=== PATIENT | female | born 1985 | race Caucasian/White ===

== ENCOUNTER 2017-01-11 04:14 | Emergency (ER) | payer OTHER ==
[2017-01-11 04:29] VITALS: TEMP 97.8; BMI 26.6
--- NOTE | 2017-01-11 04:55 | PDOC ---
History of Present Illness - History of Present Illness Initial Comments: 01/11/17 04:54 CHIEF COMPLAINT: throat pain and fever HISTORY OF PRESENT ILLNESS: 31 yo F with no significant PMH presents to ED with throat pain and fever x 3 days. Patient states she is having difficulty swallowing, speaking, and difficulty moving her neck due to pain and "a bump" to the R side of her neck. No recent travel or sick contacts. PAST MEDICAL HISTORY: Denies past medical history FAMILY HISTORY: Denies SOCIAL HISTORY: Denies tobacco, alcohol, illicit drug use. SURGICAL HISTORY: Denies ALLERGIES: No known drug allergies REVIEW OF SYSTEMS General/Constitutional: Fever x 3 days. Denies fever or chills. Denies weakness , weight change. HEENT: Throat pain. Denies change in vision. Denies ear pain or discharge. Denies sore throat. Cardiovascular: Denies chest pain or shortness of breath. Respiratory: Denies cough, wheezing, or hemoptysis. Gastrointestinal: Denies nausea, vomiting, diarrhea or constipation. Denies rectal bleeding. Musculoskeletal: Right sided neck pain. PHYSICAL EXAM General Appearance: Well-appearing, appropriately dressed. No apparent distress , no intoxication. HEENT: Tonsillar swelling with exudate bilaterally, more prominent to L side. Muffled, "hot potato voice." EOMI, PERRLA, normal ENT inspection, normal voice , TMs normal, pharynx normal. No conjunctival pallor. No photophobia, scleral icterus. Neck: R posterior. cervical lymphadenopathy. Supple. Trachea midline. No tenderness, rigidity, carotid bruit, stridor, lymphadenopathy, or thyromegaly. Respiratory/Chest: Lungs CTAB. No shortness of breath, chest tenderness, respiratory distress, accessory muscle use. No crackles, rales, rhonchi, stridor , wheezing, dullness Cardiovascular: RRR. S1, S2. Gastrointestinal/Abdominal: Normal bowel sounds. Abdomen soft, non-distended. No tenderness or rebound tenderness. No organomegaly, pulsatile mass, guarding , hernia, hepatomegaly, splenomegaly. Lymphatic: No adenopathy, tenderness. Musculoskeletal/Extremities: Normal inspection. FROM of all extremities, normal capillary refill. Pelvis Stable. No CVA tenderness. No tenderness to extremities, pedal edema, swelling, erythema or deformity. Integumentary: Appropriate color, dry, warm. 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 Fully oriented, alert. Appropriate mood/affect. Motor strength 5/5. No appreciable EOM palsy, facial droop or sensory deficit. <Dalia Cardenas - Last Filed: 01/11/17 07:08> <Juana Rowe - Last Filed: 01/11/17 13:19> - General Chief Complaint: Sore Throat Stated Complaint: THROAT AND NECK PAIN Time Seen by Provider: 01/11/17 04:29 Past History - Past Medical History GI Disorders: Yes (Gastritis) Suicide Attempt (Hx): No - Immunization History Immunization Up to Date: Yes - Psycho/Social/Smoking Cessation Hx Anxiety: No Suicidal Ideation: No Smoking Status: No Smoking History: Never smoked Have you smoked in the past 12 months: No Number of Cigarettes Smoked Daily: 0 Cigars Per Day: 0 Hx Alcohol Use: No Drug/Substance Use Hx: No Substance Use Type: None <Dalia Cardenas - Last Filed: 01/11/17 07:08> <Juana Rowe - Last Filed: 01/11/17 13:19> - Past Medical History Allergies/Adverse Reactions: Allergies Allergy/AdvReac Type Severity Reaction Status Date / Time No Known Allergies Allergy Verified 11/08/16 09:39 Home Medications: Ambulatory Orders Clindamycin [Cleocin -] 300 mg PO Q6HPO #56 capsule 01/11/17 *Physical Exam - Vital Signs Last Vital Signs Temp Pulse Resp BP Pulse Ox 97.8 F 75 18 130/71 100 01/11/17 04:27 01/11/17 04:27 01/11/17 04:27 01/11/17 04:27 01/11/17 04:27 <Dalia Cardenas - Last Filed: 01/11/17 07:08> - Vital Signs Last Vital Signs Temp Pulse Resp BP Pulse Ox 97.8 F 72 18 126/68 100 01/11/17 04:27 01/11/17 13:00 01/11/17 13:00 01/11/17 13:00 01/11/17 13:00 <Juana Rowe - Last Filed: 01/11/17 13:19> ED Treatment Course - LABORATORY CBC & Chemistry Diagram: 01/11/17 05:00 01/11/17 05:00 <Dalia Cardneas - Last Filed: 01/11/17 07:08> - LABORATORY CBC & Chemistry Diagram: 01/11/17 05:00 01/11/17 05:00 - ADDITIONAL ORDERS Additional order review: Laboratory Results 01/11/17 01/11/17 05:00 05:00 Sodium 138 Potassium 3.2 L Chloride 102 Carbon Dioxide 26 Anion Gap 10 BUN 11 D Creatinine 0.7 Creat Clearance w eGFR > 60 Random Glucose 100 D Calcium 8.4 L Total Bilirubin 0.4 AST 12 L D ALT 17 Alkaline Phosphatase 95 D Total Protein 7.9 Albumin 3.6 Serum , Qual Negative 01/11/17 10:29 Group A Strep Rapid Antigen - Final Throat 01/11/17 05:00 RBC 4.65 MCV 89.5 MCHC 33.4 RDW 14.7 MPV 9.1 - Medications Given in the ED: ED Medications Discontinued Medications Generic Name Dose Route Start Last Admin Trade Name Freq PRN Reason Stop Dose Admin Dexamethasone Sodium Phosphate 4 mg 01/11/17 04:56 01/11/17 05:16 Decadron Injection - IVPUSH 01/11/17 04:57 4 mg ONCE ONE Administration Dexamethasone Sodium Phosphate 6 mg 01/11/17 07:17 01/11/17 07:32 Decadron Injection - IVPUSH 01/11/17 07:18 6 mg ONCE ONE Administration Ampicillin Sodium/Sulbactam 100 mls @ 200 mls/hr 01/11/17 04:58 01/11/17 05:16 Sodium 3 gm/ Sodium Chloride IVPB 01/11/17 05:27 200 mls/hr ONCE ONE Administration Sodium Chloride 1,000 mls @ 1,000 mls/hr 01/11/17 07:56 01/11/17 08:06 Normal Saline - IV 01/11/17 08:55 1,000 mls/hr ASDIR STA Administration Sodium Chloride 1,000 mls @ 1,000 mls/hr 01/11/17 10:12 01/11/17 10:19 Normal Saline - IV 01/11/17 11:11 1,000 mls/hr ASDIR STA Administration Clindamycin Phosphate 50 mls @ 100 mls/hr 01/11/17 10:28 01/11/17 10:33 Cleocin 600 Mg Premix Ivpb - IVPB 01/11/17 10:57 100 mls/hr ONCE ONE Administration Ketorolac Tromethamine 30 mg 01/11/17 10:10 01/11/17 10:19 Toradol Injection - IVPUSH 01/11/17 10:11 30 mg ONCE ONE Administration Morphine Sulfate 2 mg 01/11/17 06:42 01/11/17 06:52 Morphine Injection - IVPUSH 01/11/17 06:43 2 mg ONCE ONE Administration Ondansetron HCl 4 mg 01/11/17 06:42 01/11/17 06:52 Zofran Injection IVPUSH 01/11/17 06:43 4 mg ONCE ONE Administration Potassium Chloride 20 meq 01/11/17 06:34 01/11/17 06:51 Potassium Chloride 20 Meq Premix Ivpb - IVPB 01/11/17 06:35 20 meq ONCE ONE Administration <Juana Rowe - Last Filed: 01/11/17 13:19> Medical Decision Making - Medical Decision Making 01/11/17 05:33 31 yo F with no PMH presents to ED with throat pain with fever x 3 days. Patient has muffled voice on exam with R posterior cervical pain and lymphadenophathy. 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 -2 mg morphine IVPUSH -[address] results: ~11m left tonsillar base very early abscess vs. fluid filled crypt ( axial image 33), likely the latter; consider follow-up if symptoms persist. No retropharyngeal abscess. Mildly prominent left jugulodigastric node, shotty adenopathy. The aerodigestive tract and parotid/submandibular/thyroid glands are otherwise unremarkable. Impression: as above. Read by: Kristofer Huerta MD On-call ENT MD Drew campos. Awaiting callback. Case discussed in detail with oncoming emergency provider including history, physical exam and ancillary studies. In brief, this patient is being seen in the ED for a chief complaint of: I have completed the initial assessment interview note and have ordered the following labs: CBC, CMP, serum preg I have reviewed the following results: all Plan for disposition as follows: pending consult from Dr. Russell Oncoming SEGUNDO Rowe has assumed care for the patient and will complete the evaluation and treatment. <Dalia Cardenas - Last Filed: 01/11/17 07:08> *DC/Admit/Observation/Transfer <Dalia Cardenas - Last Filed: 01/11/17 07:08> <Juana Rowe - Last Filed: 01/11/17 13:19> Diagnosis at time of Disposition: Strep throat, Peritonsillar abscess - Discharge Dispostion Disposition: HOME Condition at time of disposition: Improved - Prescriptions Prescriptions: Clindamycin [Cleocin -] 300 mg PO Q6HPO #56 capsule - Referrals Referrals: Elvia Ramirez MD [Primary Care Provider] - Al Russell MD [Staff Physician] - (Call Friday to schedule appointment) - Patient Instructions Printed Discharge Instructions: DI for Strep Throat, DI for Peritonsillar Abscess -- Adult Additional Instructions: Discharge Instructions: -Take antibiotics as prescribed for entire 14 days -Take 600mg of Ibuprofen (Over the counter) with food for pain every 6 hours -Eat a soft diet and drink plenty of liquids to stay hydrated -Gargle with warm salt water to help with sore throat -Call Dr. Russell on Friday to schedule follow up appointment -REturn to the ER immediately with any worsening or concerning symptoms.
[2017-01-11] MEDS ORDERED: DEXAMETHASONE SOD PHOSPHATE 4 MG/1 ML VIAL IVPUSH ONE (04:56)
[2017-01-11] MEDS ORDERED: AMPICILLIN NA/SULBACTAM NA 3 GM in SODIUM CHLORIDE 100 ML IVPB ONE (04:58)
[2017-01-11] MEDS ORDERED: DEXAMETHASONE SOD PHOSPHATE 4 MG/1 ML VIAL ONE (05:02)
[2017-01-11 05:28] LABS: MCH 29.9 pg (25.7-33.7); MCHC 33.4 g/dl (32.0-36.0); MEAN CELL VOLUME 89.5 fl (80-96); MEAN PLT VOLUME 9.1 fl (7.5-11.1); PLATELET COUNT 171 K/MM3 (134-434); RDW 14.7 % (11.6-15.6); WHITE BLOOD COUNT 14.6 K/mm3 (4.0-10.0)
[2017-01-11 05:57] LABS: ALBUMIN 3.6 g/dl (3.4-5.0); ALK PHOS 95 U/L (45-117); ANION GAP 10 (8-16); BILIRUBIN,TOTAL 0.4 mg/dL (0.2-1.0); CALCIUM 8.4 mg/dL (8.5-10.1); CO2 26 mmol/L (21-32); CREATININE 0.7 mg/dL (0.55-1.02); GLUCOSE,RANDOM 100 mg/dL (74-106); SGOT/AST 12 U/L (15-37); SGPT/ALT 17 U/L (12-78); TOT PROT 7.9 g/dl (6.4-8.2)
[2017-01-11] MEDS ORDERED: POTASSIUM CHLORIDE 20 MEQ PREMIX IVPB 100 ML IVPB ONE (06:34)
[2017-01-11] MEDS ORDERED: KCL 10 MEQ IVPB 200 ML IVPB ONE (06:40)
[2017-01-11] MEDS ORDERED: morphine CARPU-JECT 2 MG/1 ML DISP.SYRIN IVPUSH ONE (06:42)
[2017-01-11] MEDS ORDERED: ONDANSETRON 4 MG/2 ML VIAL IVPUSH ONE (06:42)
[2017-01-11] MEDS ORDERED: ONDANSETRON 4 MG/2 ML VIAL ONE (06:44)
[2017-01-11] MEDS ORDERED: morphine CARPU-JECT 2 MG/1 ML DISP.SYRIN ONE (06:44)
[2017-01-11] MEDS ORDERED: DEXAMETHASONE SOD PHOSPHATE 10 MG/1 ML VIAL IVPUSH ONE (07:17)
[2017-01-11] MEDS ORDERED: DEXAMETHASONE SOD PHOSPHATE 10 MG/1 ML VIAL ONE (07:28)
[2017-01-11] MEDS ORDERED: SODIUM CHLORIDE 1,000 ML IV STA ×2 (07:56→10:12)
--- NOTE | 2017-01-11 07:58 | PDOC ---
ED Treatment Course - LABORATORY CBC & Chemistry Diagram: 01/11/17 05:00 01/11/17 05:00 - ADDITIONAL ORDERS Additional order review: Laboratory Results 01/11/17 01/11/17 05:00 05:00 Sodium 138 Potassium 3.2 L Chloride 102 Carbon Dioxide 26 Anion Gap 10 BUN 11 D Creatinine 0.7 Creat Clearance w eGFR > 60 Random Glucose 100 D Calcium 8.4 L Total Bilirubin 0.4 AST 12 L D ALT 17 Alkaline Phosphatase 95 D Total Protein 7.9 Albumin 3.6 Serum , Qual Negative 01/11/17 05:00 RBC 4.65 MCV 89.5 MCHC 33.4 RDW 14.7 MPV 9.1 - Medications Given in the ED: ED Medications Discontinued Medications Generic Name Dose Route Start Last Admin Trade Name Freq PRN Reason Stop Dose Admin Dexamethasone Sodium Phosphate 4 mg 01/11/17 04:56 01/11/17 05:16 Decadron Injection - IVPUSH 01/11/17 04:57 4 mg ONCE ONE Administration Dexamethasone Sodium Phosphate 6 mg 01/11/17 07:17 01/11/17 07:32 Decadron Injection - IVPUSH 01/11/17 07:18 6 mg ONCE ONE Administration Ampicillin Sodium/Sulbactam 100 mls @ 200 mls/hr 01/11/17 04:58 01/11/17 05:16 Sodium 3 gm/ Sodium Chloride IVPB 01/11/17 05:27 200 mls/hr ONCE ONE Administration Morphine Sulfate 2 mg 01/11/17 06:42 01/11/17 06:52 Morphine Injection - IVPUSH 01/11/17 06:43 2 mg ONCE ONE Administration Ondansetron HCl 4 mg 01/11/17 06:42 01/11/17 06:52 Zofran Injection IVPUSH 01/11/17 06:43 4 mg ONCE ONE Administration Potassium Chloride 20 meq 01/11/17 06:34 01/11/17 06:51 Potassium Chloride 20 Meq Premix Ivpb - IVPB 01/11/17 06:35 20 meq ONCE ONE Administration Progress Note - Progress Note Progress Note: I have received report from CHENTE Cardenas regarding this patient. Pt's initial chief complaint: throat pain and fever x 3 days Pt's work up completed prior to sign out: labs, serum , CT soft tissue of neck Pt treatment given from prior staff: IV ancef, 4mg decadron, morphine, potassium, zofran Pt plan to be completed: Awaiting call back from Dr. 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 Pt was worked up by CHENTE Cardenas. Dr. Russell suggested we monitor the patient in the ER for a few hours. If no improvement, Dr. Russell wants call back and will come and assess the patient. Ordered another 6mg of Decadron and IV fluids. Rapid strep sent Pt given IV toradol and IV clinda Reassessment of throat shows very minimal left HYDRAMATIC MECHANIC with minimal uvula deviation and no trismus. The patient is able to tolerate liquids. Will discharge to home with rx for clinda Instructed her to take entire 14 day course of clindamycin. Instructed her to take 600mg of Ibuprofen every 6 hours with food for pain/fever Suggested she eat a soft diet and drink plenty of liquids until her symptoms improve Instructed her to call Dr. Russell on Friday to schedule follow up appointment and return to the ER immediately with any worsening or concerning symptoms. The patient verbalizes understanding of all instructions, has no further questions and is awaiting discharge. *DC/Admit/Observation/Transfer Diagnosis at time of Disposition: Strep throat, Peritonsillar abscess - Discharge Dispostion Disposition: HOME Condition at time of disposition: Improved - Referrals Referrals: Elvia Ramirez MD [Primary Care Provider] - Al Russell MD [Staff Physician] - (Call Friday to schedule appointment) - Patient Instructions Printed Discharge Instructions: DI for Strep Throat, DI for Peritonsillar Abscess -- Adult Additional Instructions: Discharge Instructions: -Take antibiotics as prescribed for entire 14 days -Take 600mg of Ibuprofen (Over the counter) with food for pain every 6 hours -Eat a soft diet and drink plenty of liquids to stay hydrated -Gargle with warm salt water to help with sore throat -Call Dr. Russell on Friday morning to schedule follow up appointment -REturn to the ER immediately with any worsening or concerning symptoms.
[2017-01-11] MEDS ORDERED: KETOROLAC TROMETHAMINE 30 MG/1 ML VIAL IVPUSH ONE (10:10)
[2017-01-11] MEDS ORDERED: KETOROLAC TROMETHAMINE 30 MG/1 ML VIAL ONE (10:14)
[2017-01-11] MEDS ORDERED: CLINDAMYCIN 600MG PREMIX IVPB 50 ML IVPB ONE ×2 (10:28→10:31)
[2017-01-11 13:10] VITALS: BP 126/68; PULSE 72
== END 2017-01-11 13:33 | disposition home or self-care (01) ==
LOC: JER 04:14
PROC: 3E0337Z Introduction of Electrolytic and Water Balance Substance into Peripheral Vein, Percutaneous Approach (ICD-10-PCS; principal; 2017-01-11)
PROC: 3E03329 Introduction of Other Anti-infective into Peripheral Vein, Percutaneous Approach (ICD-10-PCS; 2017-01-11)
PROC: 3E03329 Introduction of Other Anti-infective into Peripheral Vein, Percutaneous Approach (ICD-10-PCS; 2017-01-11)
PROC: 3E033NZ Introduction of Analgesics, Hypnotics, Sedatives into Peripheral Vein, Percutaneous Approach (ICD-10-PCS; 2017-01-11)
PROC: 3E0333Z Introduction of Anti-inflammatory into Peripheral Vein, Percutaneous Approach (ICD-10-PCS; 2017-01-11)
PROC: 3E033GC Introduction of Other Therapeutic Substance into Peripheral Vein, Percutaneous Approach (ICD-10-PCS; 2017-01-11)
DX: J36 Peritonsillar abscess (principal); J02.0 Streptococcal pharyngitis; B95.0 Streptococcus, group A, as the cause of diseases classified elsewhere; R59.0 Localized enlarged lymph nodes
CPT/HCPCS: 36415; 70491-TC; 80053; 84703; 85027; 87070; 87430; 96361; 96365; 96367; 96374; 96375; 99282-25

== ENCOUNTER 2017-03-28 03:21 | Emergency (ER) | payer OTHER ==
[2017-03-28 03:42] VITALS: BMI 22.3
[2017-03-28] MEDS ORDERED: PANTOPRAZOLE SODIUM 40 MG in SODIUM CHLORIDE 100 ML IVPB ONE (04:00)
[2017-03-28] MEDS ORDERED: SODIUM CHLORIDE 1,000 ML IV STA (04:00)
[2017-03-28] MEDS ORDERED: ONDANSETRON 4 MG/2 ML VIAL IVPUSH ONE (04:00)
[2017-03-28] MEDS ORDERED: morphine CARPU-JECT 4 MG/1 ML DISP.SYRIN IVPUSH ONE (04:00)
[2017-03-28] MEDS ORDERED: ONDANSETRON 4 MG/2 ML VIAL ONE (04:25)
[2017-03-28] MEDS ORDERED: morphine CARPU-JECT 4 MG/1 ML DISP.SYRIN ONE (04:25)
--- NOTE | 2017-03-28 04:31 | PDOC ---
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 Patient states symptoms have been ongoing, she was seen at [facility] 2 days ago and they did "nothing for me." Patient report swelling, and worsening epigastric abd pain. + n/v, unable to tolerate foods. LNMP: 2 weeks ago. She states she was prescribed medications but does not know what they were because she did not take them. logo Welcome Adarsh Palacios Update Personal Info | FAQ | Help | Search Results Help Coming soon, the [employer] Registry will be updated to enhance accessibility when using mobile devices. The appearance of the [employer] Registry will change as a result of the enhancements, but all of the current functionality will remain. Patient Search Multi-Patient Search Reports Drug Listing Designation My JULIETA Numbers Data Detail Level: Printer-Friendly View | Show Extended View Confidential Drug Utilization Report Search Terms: Angel Pierce, 1985 Search Date: 03/28/2017 04:31: 29 AM The Drug Utilization Report below displays all of the controlled substance prescriptions, if any, that your patient has filled in the last twelve months. The information displayed on this report is compiled from pharmacy submissions to the Department, and accurately reflects the information as submitted by the pharmacies. This report was requested by: Adarsh Palacios | Reference #: [id number] There are no results for the search terms that you entered. Timing/Duration: reports: getting worse Quality: reports: severe, throbbing Abdominal Pain Onset Location: reports: epigastric Pain Radiation: reports: back Activities at Onset: reports: no specific activity Treatment Prior to Arrive: worse with: analgesics, antacids, cold pack, heat, laxative, enema, other Aggravating Factors: improves with: Eating. worse with: None, Defecation, Emotional upset, Exertion, [place], Movement, Voiding, Change in position Alleviating Factors: improves with: None. worse with: Belching, Shallow Breathing, Defecation, Eating, Holding Breath, Passing Gas, Change in Position, Rest, Voiding, Vomiting Past History - Travel Traveled outside of the country in the last 30 days: No Close contact w/someone who was outside of country & ill: No - Past Medical History Allergies/Adverse Reactions: Allergies Allergy/AdvReac Type Severity Reaction Status Date / Time No Known Allergies Allergy Verified 03/28/17 03:39 Home Medications: Ambulatory Orders NK [No Known Home Medication] 03/28/17 GI Disorders: Yes (Gastritis) Suicide Attempt (Hx): No - Immunization History Immunization Up to Date: Yes - Psycho/Social/Smoking Cessation Hx Anxiety: No Suicidal Ideation: No Smoking Status: No Smoking History: Never smoked Have you smoked in the past 12 months: No Number of Cigarettes Smoked Daily: 0 Cigars Per Day: 0 Information on smoking cessation initiated: No Hx Alcohol Use: No Drug/Substance Use Hx: No Substance Use Type: None Abd/GI Specific PMHX - Complaint Specific PMHX Colitis: No Diverticulitis: No Gall Bladder Disease: No GERD: No Hepatitis: No Irritable Bowel Synd (IBS): No Pancreatitis: No GI Ulcer Disease: No Review of Systems - Review of Systems Able to Perform ROS?: Yes Is the patient limited Ugandan proficient: No Constitutional: No: Chills, Fever Respiratory: No: Cough, Shortness of Breath, Stridor, Wheezing Cardiac (ROS): No: Chest Pain ABD/GI: Yes: Abdominal Distended, Nausea, Poor Appetite, Poor Fluid Intake, Vomiting, Abdominal cramping. No: Diarrhea, Rectal Bleeding : No: Burning, Dysuria, Hematuria, Pain, Urgency Musculoskeletal: Yes: Back Pain Integumentary: No: Bruising, Dryness, Erythema, Rash Neurological: No: Headache, Seizure, Ataxia, Dizziness All Other Systems: Reviewed and Negative *Physical Exam - Vital Signs Last Vital Signs Temp Pulse Resp BP Pulse Ox 98.2 F 92 H 14 124/82 98 03/28/17 03:39 03/28/17 03:39 03/28/17 03:39 03/28/17 03:39 03/28/17 03:39 - Physical Exam General Appearance: Yes: Nourished, Appropriately Dressed, Apparent Distress, Moderate Distress. No: Mild Distress, Severe Distress Neck: positive: Trachea midline, Supple. negative: Stridor, Lymphadenopathy (R) , Lymphadenopathy (L) Respiratory/Chest: positive: Lungs Clear, Normal Breath Sounds. negative: Respiratory Distress, Accessory Muscle Use, Labored Respiration, Rapid RR, Stridor, Wheezing Cardiovascular: positive: Regular Rhythm, Regular Rate Gastrointestinal/Abdominal: positive: Normal Bowel Sounds, Tender (epigastric region), Soft, Distended, Guarding, Rebound, Tenderness Musculoskeletal: positive: Normal Inspection. negative: CVA Tenderness, Vertebral Tenderness Extremity: positive: Normal Capillary Refill, Normal Inspection, Normal Range of Motion. negative: Pedal Edema, Swelling, Erythema, Inflammation Integumentary: positive: Normal Color, Dry, Warm. 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
[2017-03-28] MEDS ORDERED: PANTOPRAZOLE SODIUM 100 ML IVPB ONE (04:37)
[2017-03-28 05:08] LABS: BASOPHIL 0.4 % (0-2.0); EOSINOPHIL 2.1 % (0-4.5); MCHC 32.8 g/dl (32.0-36.0); MEAN CELL VOLUME 91.5 fl (80-96); MEAN PLT VOLUME 9.5 fl (7.5-11.1); NEUTROPHILS 52.7 % (42.8-82.8); PLATELET COUNT 218 K/MM3 (134-434); URINE APPEARANCE CLEAR; URINE BILIRUBIN NEGATIVE (NEGATIVE); URINE BLOOD NEGATIVE (NEGATIVE); URINE COLOR LTYELLOW; URINE GLUCOSE (UA) NEGATIVE (NEGATIVE); URINE KETONE TRACE (NEGATIVE); URINE NITRITE NEGATIVE (NEGATIVE); URINE UROBILINOGEN NEGATIVE E.U./dl (0.2-1.0); WHITE BLOOD COUNT 7.1 K/mm3 (4.0-10.0)
[2017-03-28 05:11] LABS: URINE LEUK ESTERASE TRACE (NEGATIVE); URINE PROTEIN 1+ (NEGATIVE)
[2017-03-28 05:26] LABS: URINE MUCUS RARE; URINE WBC 3 /hpf (3-5)
[2017-03-28 05:42] LABS: AMYLASE 62 U/L (25-115); ANION GAP 6 (8-16); BILIRUBIN,TOTAL 0.2 mg/dL (0.2-1.0); CALCIUM 8.2 mg/dL (8.5-10.1); CO2 29 mmol/L (21-32); GLUCOSE,RANDOM 75 mg/dL (74-106); SGOT/AST 12 U/L (15-37); SGPT/ALT 19 U/L (12-78); TOT PROT 7.8 g/dl (6.4-8.2)
[2017-03-28 05:44] LABS: ALK PHOS 99 U/L (45-117); TROPONIN I < 0.02 ng/ml (0.00-0.05)
[2017-03-28 05:56] LABS: BILIRUBIN,DIRECT < 0.1 mg/dL (0.0-0.2)
--- NOTE | 2017-03-28 07:16 | PDOC ---
*Physical Exam - Vital Signs Last Vital Signs Temp Pulse Resp BP Pulse Ox 98.2 F 83 18 127/83 98 03/28/17 03:39 03/28/17 06:53 03/28/17 06:53 03/28/17 06:53 03/28/17 06:53 03/28/17 07:34 ED Treatment Course - LABORATORY CBC & Chemistry Diagram: 03/28/17 04:55 03/28/17 04:55 - ADDITIONAL ORDERS Additional order review: Laboratory Results 03/28/17 03/28/17 03/28/17 04:55 04:55 04:55 Sodium 141 Potassium 4.1 D Chloride 106 Carbon Dioxide 29 Anion Gap 6 L BUN 17 D Creatinine 1.0 D Random Glucose 75 D Calcium 8.2 L Magnesium 2.2 Total Bilirubin 0.2 D Direct Bilirubin < 0.1 AST 12 L ALT 19 Alkaline Phosphatase 99 Creatine Kinase 132 Troponin I < 0.02 Total Protein 7.8 Albumin 4.0 Total Amylase 62 Lipase 147 Urine Color Ltyellow Urine Appearance Clear Urine pH 5.0 Urine Protein 1+ H Urine Glucose (UA) Negative Urine Ketones Trace H Urine Blood Negative Urine Nitrite Negative Urine Bilirubin Negative Urine Urobilinogen Negative Ur Leukocyte Esterase Trace H Urine RBC None Urine WBC 3 Ur Epithelial Cells Rare Urine Mucus Rare Urine HCG, Qual Negative 03/28/17 04:55 RBC 4.30 MCV 91.5 MCHC 32.8 RDW 15.0 MPV 9.5 Neutrophils % 52.7 Lymphocytes % 33.7 D Monocytes % 11.1 H Eosinophils % 2.1 Basophils % 0.4 - Medications Given in the ED: ED Medications Discontinued Medications Generic Name Dose Route Start Last Admin Trade Name Ibrahima PRN Reason Stop Dose Admin Pantoprazole Sodium 40 mg/ 100 mls @ 200 mls/hr 03/28/17 04:00 03/28/17 05:00 Sodium Chloride IVPB 03/28/17 04:29 200 mls/hr ONCE ONE Administration Sodium Chloride 1,000 mls @ 1,000 mls/hr 03/28/17 04:00 03/28/17 05:00 Normal Saline - IV 03/28/17 04:59 1,000 mls/hr ASDIR STA Administration Morphine Sulfate 4 mg 03/28/17 04:00 03/28/17 05:00 Morphine Injection - IVPUSH 03/28/17 04:01 4 mg ONCE ONE Administration Ondansetron HCl 4 mg 03/28/17 04:00 03/28/17 05:00 Zofran Injection IVPUSH 03/28/17 04:01 4 mg ONCE ONE Administration Medical Decision Making - Medical Decision Making 03/28/17 07:15 Signout received from CHENTE Palacios. Briefly, this is a 32 year old female who presents for evaluation of epigastric pain with n/v and inability to tolerate PO. She was seen at [facility] two days ago for the same complaint, but no testing was done. -Labs were done and were notable for WBC and LFTs within normal limits -CT and gallbladder u/s were ordered and are pending -Patient has been medicated with morphine, Zofran, Protonix, and IVF 03/28/17 08:39 U/s and CTAP reveal no acute pathology. A 4mm nonobstructing right lower renal pole calculus is again seen with evidence of scarring. Patient is feeling better and is tolerating PO. *DC/Admit/Observation/Transfer Diagnosis at time of Disposition: Epigastric pain - Discharge Dispostion Disposition: HOME Condition at time of disposition: Stable Admit: No - Prescriptions Prescriptions: Famotidine [Pepcid -] 20 mg PO DAILY #30 tablet Ondansetron [Zofran Odt -] 4 mg SL TID PRN #21 od.tablet PRN Reason: Nausea - Referrals Referrals: Elvia Ramirez MD [Primary Care Provider] - 3 days - Patient Instructions Printed Discharge Instructions: DI for Gastritis, [place] Diet Additional Instructions: -Take Pepcid and Zofran as prescribed for stomach pain and nausea -Eat a bland diet (instructions enclosed) -Follow up with your primary care doctor early next week -Return here for worsening pain, inability to keep down fluids, or any other concerning symptoms Print Language: BANGLADESHI - Post Discharge Activity Work/School Note: Back to Work
[2017-03-28 08:01] VITALS: BP 128/86; PULSE 85; TEMP 97.8
--- NOTE | 2017-03-28 10:22 | EKG ---
Test Reason : Blood Pressure : / mmHG Vent. Rate : 079 BPM Atrial Rate : 079 BPM P-R Int : 162 ms QRS Dur : 084 ms QT Int : 396 ms P-R-T Axes : 055 061 042 degrees QTc Int : 454 ms NORMAL SINUS RHYTHM WHEN COMPARED WITH ECG OF 08-NOV-2016 09:44, T WAVE INVERSION NO LONGER EVIDENT IN INFERIOR LEADS Confirmed by RAMONA HARRINGTON MD ([id number]) on 03/28/2017 10:21:49 AM Referred By: Confirmed By:RAMONA HARRINGTON MD
== END 2017-03-28 09:13 | disposition home or self-care (01) ==
LOC: JER 03:21
PROC: 3E0333Z Introduction of Anti-inflammatory into Peripheral Vein, Percutaneous Approach (ICD-10-PCS; principal; 2017-03-28)
PROC: 3E033GC Introduction of Other Therapeutic Substance into Peripheral Vein, Percutaneous Approach (ICD-10-PCS; 2017-03-28)
PROC: 3E0337Z Introduction of Electrolytic and Water Balance Substance into Peripheral Vein, Percutaneous Approach (ICD-10-PCS; 2017-03-28)
DX: R10.13 Epigastric pain (principal)
CPT/HCPCS: 36415; 74177-TC; 76705-TC; 80048; 80076; 81003; 81015; 82150; 82550; 83690; 83735; 84484; 84703; 85025; 87804; 93005; 93010; 96361; 96365; 96375; 99283-25

== ENCOUNTER 2017-04-20 07:45 | Emergency (ER) | payer OTHER ==
[2017-04-20 08:04] VITALS: BP 112/84; PULSE 88; TEMP 98.6; BMI 22.3
[2017-04-20] MEDS ORDERED: KETOROLAC TROMETHAMINE 60 MG/2 ML VIAL IM ONE (08:25)
[2017-04-20] MEDS ORDERED: AMOX TR/POT CLAV 875MG/125MG TABLETS (FP) PO ONE (08:25)
[2017-04-20] MEDS ORDERED: KETOROLAC TROMETHAMINE 60 MG/2 ML VIAL ONE (08:26)
[2017-04-20] MEDS ORDERED: AMOX TR/POT CLAV 875MG/125MG TABLETS (FP) ONE (08:27)
--- NOTE | 2017-04-20 08:30 | PDOC ---
History of Present Illness - General Chief Complaint: Cold Symptoms Stated Complaint: BODYACHES Time Seen by Provider: 04/20/17 08:18 History Source: Patient Exam Limitations: No Limitations - History of Present Illness Initial Comments: 04/20/17 08:25 Patient is a 32-year-old female presents to the emergency Department with generalized pain, increased pain in bilateral legs, tactile fever, sinus pressure pain and nasal discharge for 2 weeks. Was seen at [facility] one week ago told it was viral however patient still with increased symptoms now with headache. Patient states she is unable to eat vomits all her food no diarrhea no abdominal pain no urinary symptoms. Past Medical History: Denies. Allergies: No known allergies Medications: None Family History: Non-contributory Social History: Denies smoking, alcohol use, or IVDU Review of Systems GENERAL/CONSTITUTIONAL: Tactile fever, weakness and generalized aches and pains. HEAD, EYES, EARS, NOSE AND THROAT: No change in vision. No ear pain or discharge. No sore throat. Nasal discharge and sinus pressure and pain CARDIOVASCULAR: No chest pain or shortness of breath. RESPIRATORY: Intermittent cough, no wheezing, or hemoptysis. GASTROINTESTINAL: No nausea, vomiting, diarrhea or constipation. No rectal bleeding. GENITOURINARY: No dysuria, frequency, or change in urination. MUSCULOSKELETAL: Bilateral lower extremity pain, No neck or back pain. SKIN : No rash or easy bruising. NEUROLOGIC: No headache, vertigo, loss of consciousness, or loss of sensation. PSYCHIATRIC: No depression or anxiety. ENDOCRINE: No increased thirst. No abnormal weight change. HEMATOLOGIC/LYMPHATIC: No anemia, easy bleeding, or history of blood clots. ALLERGIC/IMMUNOLOGIC: No hives or skin allergy. No latex allergy. Physical Exam: GENERAL: The patient is awake, alert, and fully oriented, in no acute distress. HEAD: Normal with no signs of trauma. EYES: Pupils equal, round and reactive to light, extraocular movements intact, sclera anicteric, conjunctiva clear. ENT: Ears normal, nares congested and erythematous, bilateral frontal sinus pressure and pain oropharynx clear without exudates. Moist mucous membranes. No uvula deviation NECK: Normal range of motion, supple without lymphadenopathy, JVD, or masses. LUNGS: Breath sounds equal, clear to auscultation bilaterally. No wheezes, and no crackles. HEART: Regular rate and rhythm, normal S1 and S2 without murmur, rub or gallop. ABDOMEN: Soft, nontender, normoactive bowel sounds. No guarding, no rebound. No masses. No bruising or abrasions MUSCULOSKELETAL: Normal range of motion, no edema. No clubbing or cyanosis. No cords, erythema, or tenderness. No CVA Tenderness with fist palpation. Bilateral leg pain. NEUROLOGICAL: Cranial nerves II through XII grossly intact. Normal speech, normal gait. SKIN: Warm, Dry, normal turgor, no rashes or lesions noted. Past History - Past Medical History Allergies/Adverse Reactions: Allergies Allergy/AdvReac Type Severity Reaction Status Date / Time No Known Allergies Allergy Verified 04/20/17 07:57 Home Medications: Ambulatory Orders Amoxicillin/Potassium Clav [Augmentin 875-125 Tablet] 1 each PO BID #14 tablet 04/20/17 Fluticasone Prop 0.05% Nasal [Flonase -] 1 spray NS BID #1 spray.pump 04/20/17 GI Disorders: Yes (Gastritis) Kidney Stones: Yes Suicide Attempt (Hx): No - Immunization History Immunization Up to Date: Yes - Psycho/Social/Smoking Cessation Hx Anxiety: No Suicidal Ideation: No Smoking Status: No Smoking History: Never smoked Have you smoked in the past 12 months: No Number of Cigarettes Smoked Daily: 0 Cigars Per Day: 0 Information on smoking cessation initiated: No Hx Alcohol Use: No Drug/Substance Use Hx: No Substance Use Type: None *Physical Exam - Vital Signs Last Vital Signs Temp Pulse Resp BP Pulse Ox 98.6 F 88 18 112/84 100 04/20/17 07:59 04/20/17 07:59 04/20/17 07:59 04/20/17 07:59 04/20/17 07:59 Medical Decision Making - Medical Decision Making 04/20/17 08:29 A/P: Patient with clinical signs of acute sinusitis however patient with bilateral leg pain, tactile fever, crying states she is very uncomfortable and in pain. Toradol 60 mg 1 ordered, Augmentin 875 by mouth 1 ordered. Assess urinalysis, urine and urine culture due to bilateral leg pain and tactile fever. 04/20/17 09:07 Laboratory Tests 04/20/17 08:45 Urine Color Ltyellow Urine Appearance Clear Urine pH 5.0 Ur Specific Petros Pending Urine Protein Negative Urine Glucose (UA) Negative Urine Ketones Negative Urine Blood 2+ H Urine Nitrite Negative Urine Bilirubin Negative Urine Urobilinogen Negative Ur Leukocyte Esterase Negative Urine HCG, Qual Negative Urine analysis with +2 blood patient currently with menses. Otherwise unremarkable. She states she feels better after Toradol DC patient home on Augmentin and Flonase, strict follow-up with PMD in 2 days if symptoms persist Motrin for pain. I discussed the physical exam findings, ancillary test results and final diagnoses with the patient. I answered all of the patient's questions. The patient was satisfied with the care received and felt comfortable with the discharge plan and treatment plan. The patient will call to arrange follow-up and will return to the Emergency Department with any new, persistent or worsening symptoms. *DC/Admit/Observation/Transfer Diagnosis at time of Disposition: Sinus headache Sinusitis Qualifiers: Sinusitis location: frontal Chronicity: acute Recurrence: not specified as recurrent Qualified Code(s): J01.10 - Acute frontal sinusitis, unspecified - Discharge Dispostion Disposition: HOME Condition at time of disposition: Good Admit: No - Prescriptions Prescriptions: Amoxicillin/Potassium Clav [Augmentin 875-125 Tablet] 1 each PO BID #14 tablet Fluticasone Prop 0.05% Nasal [Flonase -] 1 spray NS BID #1 spray.pump - Referrals Referrals: Elvia Ramirez MD [Primary Care Provider] - - Patient Instructions Printed Discharge Instructions: Sinusitis, Sinusitis (Alternative Therapy) Additional Instructions: Keep head of bed elevated 45 when sleeping Antibiotics twice a day once in the morning once in the evening for 7 days Cool air humidifier Increase fluids, rest Motrin for pain Followup in the primary care doctor's office in 2 days for evaluation. If any respiratory distress, increased cough, inability to drink, increased wheezing please return immediately to emergency department.
[2017-04-20 08:56] LABS: URINE APPEARANCE CLEAR; URINE BILIRUBIN NEGATIVE (NEGATIVE); URINE COLOR LTYELLOW; URINE GLUCOSE (UA) NEGATIVE (NEGATIVE); URINE KETONE NEGATIVE (NEGATIVE); URINE LEUK ESTERASE NEGATIVE (NEGATIVE); URINE NITRITE NEGATIVE (NEGATIVE); URINE PROTEIN NEGATIVE (NEGATIVE); URINE UROBILINOGEN NEGATIVE E.U./dl (0.2-1.0)
[2017-04-20 09:04] LABS: URINE BLOOD 2+ (NEGATIVE)
[2017-04-20 09:05] LABS: URINE BACTERIA RARE /hpf (NONE SEEN); URINE HYALINE CAST 1 /lpf; URINE MUCUS RARE; URINE WBC 2 /hpf (3-5)
== END 2017-04-20 09:14 | disposition home or self-care (01) ==
LOC: JERFT 07:45 → JER 07:45 → JERFT 09:14
PROC: 3E0233Z Introduction of Anti-inflammatory into Muscle, Percutaneous Approach (ICD-10-PCS; principal; 2017-04-20)
DX: J01.10 Acute frontal sinusitis, unspecified (principal); M79.605 Pain in left leg; M79.604 Pain in right leg
CPT/HCPCS: 81003; 81015; 84703; 87086; 96372; 99281-25

== ENCOUNTER 2017-07-12 06:35 | Emergency (ER) | payer OTHER ==
[2017-07-12 07:16] VITALS: TEMP 97.5; BMI 24.0
--- NOTE | 2017-07-12 07:18 | PDOC ---
History of Present Illness - General Chief Complaint: Pain Stated Complaint: DIZZINESS, DIFF BREATHING Time Seen by Provider: 07/12/17 07:16 History Source: Patient Exam Limitations: Language Barrier - History of Present Illness Initial Comments: 07/12/17 07:39 32F with pmh of sinus infections presents to the ED with midline inspiratory chest pain and vertigo for the past 3 days. She also complains of sinus congestions. She had some sinus procedure 2 weeks ago after her ED visit last month. Patient denies feeling a similar pain before. History of GERD but patient states this feels different, Denies headaches, nausea, abdominal pain, dysuria or leg pain. 07/12/17 07:54 07/12/17 08:15 Past History - Past Medical History Allergies/Adverse Reactions: Allergies Allergy/AdvReac Type Severity Reaction Status Date / Time No Known Allergies Allergy Verified 07/12/17 07:00 Home Medications: Ambulatory Orders Amoxicillin/Potassium Clav [Augmentin 875-125 Tablet] 1 each PO BID #14 tablet 04/20/17 Fluticasone Prop 0.05% Nasal [Flonase -] 1 spray NS BID #1 spray.pump 04/20/17 Fluticasone Prop 0.05% Nasal [Flonase -] 1 - 2 spray NS DAILY #1 spray.pump Meclizine HCl [Dramamine Less Drowsy] 25 mg PO PRN PRN #30 tablet 07/12/17 Pseudoephedrine HCl [Sudafed] 30 mg PO QID #20 tablet 07/12/17 GI Disorders: Yes (Gastritis) Kidney Stones: Yes Suicide Attempt (Hx): No - Immunization History Immunization Up to Date: Yes - Psycho/Social/Smoking Cessation Hx Anxiety: No Suicidal Ideation: No Smoking Status: No Smoking History: Never smoked Have you smoked in the past 12 months: No Number of Cigarettes Smoked Daily: 0 Cigars Per Day: 0 Information on smoking cessation initiated: No Hx Alcohol Use: No Drug/Substance Use Hx: No Substance Use Type: None Review of Systems - Review of Systems Constitutional: No: Chills, Fever, Loss of Appetite HEENTM: Yes: Nose Congestion. No: Recent change in vision, Difficulty Swallowing Respiratory: Yes: See HPI, Shortness of Breath. No: Cough Cardiac (ROS): Yes: See HPI. No: Irregular Heart Rate, Palpitations, Syncope ABD/GI: No: Symptoms Reported : No: Symptoms Reported All Other Systems: Reviewed and Negative *Physical Exam - Vital Signs Last Vital Signs Temp Pulse Resp BP Pulse Ox 97.5 F L 116 H 20 125/108 97 07/12/17 07:00 07/12/17 07:00 07/12/17 07:00 07/12/17 07:00 07/12/17 07:00 - Physical Exam General Appearance: Yes: Nourished, Appropriately Dressed, Mild Distress HEENT: positive: EOMI, HECTOR, Normal ENT Inspection Neck: negative: Tender Respiratory/Chest: positive: Chest Tender, Lungs Clear, Normal Breath Sounds, Respiratory Distress (Sits up to breathe better) Cardiovascular: positive: Regular Rhythm, Regular Rate, S1, S2 ED Treatment Course - LABORATORY CBC & Chemistry Diagram: 07/12/17 07:33 07/12/17 07:33 Medical Decision Making - Medical Decision Making 07/12/17 08:11 32F presents to ED with inspiratory SOB and sternal chest pain x3days Chostochondritis vs PE vs PR vs GERD xray neg, d-dimer: neg u/s negative Patient feels better with tylenole and meclizine d/c 07/12/17 10:35 *DC/Admit/Observation/Transfer Diagnosis at time of Disposition: Costochondritis - Discharge Dispostion Disposition: HOME Admit: No - Prescriptions Prescriptions: Meclizine HCl [Dramamine Less Drowsy] 25 mg PO PRN PRN #30 tablet PRN Reason: Vertigo Fluticasone Prop 0.05% Nasal [Flonase -] 1 - 2 spray NS DAILY #1 spray.pump Pseudoephedrine HCl [Sudafed] 30 mg PO QID #20 tablet
[2017-07-12 07:46] LABS: BASOPHIL 0.4 % (0-2.0); EOSINOPHIL 1.2 % (0-4.5); MCHC 33.5 g/dl (32.0-36.0); MEAN CELL VOLUME 89.7 fl (80-96); MEAN PLT VOLUME 9.6 fl (7.5-11.1); PLATELET COUNT 232 K/MM3 (134-434); RDW 13.3 % (11.6-15.6); WHITE BLOOD COUNT 9.7 K/mm3 (4.0-10.0)
[2017-07-12] MEDS ORDERED: ACETAMINOPHEN 325 MG TABLET (FP) PO ONE (07:47)
[2017-07-12] MEDS ORDERED: FLUTICASONE PROP 0.05% 16 GM NASAL SPRAY NS ONE (07:52)
[2017-07-12] MEDS ORDERED: ALBUTEROL SO4 2.5/IPRATROPIUM 0.5 INH SOL 3 ML VIAL.NEB. NEB ONE ×2 (07:52→07:58)
[2017-07-12] MEDS ORDERED: ACETAMINOPHEN 325 MG TABLET (FP) ONE (07:53)
[2017-07-12] MEDS ORDERED: PSEUDOEPHEDRINE HCL 60 MG TABLET PO SCH (08:00)
[2017-07-12 08:12] LABS: ALBUMIN 3.9 g/dl (3.4-5.0); ALK PHOS 81 U/L (45-117); ANION GAP 10 (8-16); BILIRUBIN,TOTAL 0.3 mg/dL (0.2-1.0); CALCIUM 9.3 mg/dL (8.5-10.1); CO2 26 mmol/L (21-32); CREATININE 0.7 mg/dL (0.55-1.02); GLUCOSE,RANDOM 89 mg/dL (74-106); SGOT/AST 12 U/L (15-37); SGPT/ALT 20 U/L (12-78); TOT PROT 7.8 g/dl (6.4-8.2)
--- NOTE | 2017-07-12 08:16 | PDOC ---
Attending Attestation - Resident Resident Name: Daniel Asif - ED Attending Attestation I have performed the following: I have examined & evaluated the patient, The case was reviewed & discussed with the resident, I agree w/resident's findings & plan, Exceptions are as noted - HPI HPI: 07/12/17 08:14 32 yo F with h/o chronic sinusitis, recent sinus procedure 1 mo ago here with nasal congestion, vertigo, and now plueritic cp. no f/c no leg swelling. no h/o pe or dvt. no family h/o pe or dvt. states pain pleuritic. no cough. no f/c does smoke. no f/c <Mariam Gómez - Last Filed: 07/12/17 08:14> - Resident Resident Name: Daniel Asif - ED Attending Attestation I have performed the following: I have examined & evaluated the patient, The case was reviewed & discussed with the resident, I agree w/resident's findings & plan, Exceptions are as noted - HPI HPI: 07/12/17 08:59 32 yo F with h/o sinusitis requiring freuent sinus surgeries, and hydradenitis on remicaid and [place] here today c/o nasal congestion vertigo and plueritic chest pain. no f/c no imbalance. has had vertigo in the past with sinus congestion. no imbalance. no h/o leg swelling. no h/o pe or dvt. no family h/o dvt or pe. no recent travel. - Physicial Exam PE: 07/12/17 09:03 awake alert bilat nasal turbinate enlargement, sinus congestion rhinorhea. clear. lungs clear chest wall tenderness, heart RRR no mr/g. . abd soft NT ND. ext wwp no edema. no calf tenderness. skin warm and dry. - Medical Decision Making 07/12/17 09:05 32 yo F h/o sinusitis, on immunosuprresion here with sinus congestion and plueritic cp. differential pna, pericarditis, chest wall pain , pe. plan d dimer , labs decongestant flonase. pain control, bedside echo and ekg r/o pericardial effusion. <Wendy Toscano - Last Filed: 07/12/17 09:06>
[2017-07-12 09:07] LABS: URINE APPEARANCE CLEAR; URINE BILIRUBIN NEGATIVE (NEGATIVE); URINE BLOOD NEGATIVE (NEGATIVE); URINE COLOR STRAW; URINE GLUCOSE (UA) NEGATIVE (NEGATIVE); URINE KETONE NEGATIVE (NEGATIVE); URINE LEUK ESTERASE NEGATIVE (NEGATIVE); URINE NITRITE NEGATIVE (NEGATIVE); URINE PROTEIN NEGATIVE (NEGATIVE); URINE UROBILINOGEN NEGATIVE mg/dL (0.2-1.0)
[2017-07-12 09:17] LABS: CPK 105 IU/L (26-192); TROPONIN I < 0.02 ng/ml (0.00-0.05)
[2017-07-12] MEDS ORDERED: MECLIZINE HCL 25 MG TABLET (FP) PO ONE (10:15)
[2017-07-12] MEDS ORDERED: KETOROLAC TROMETHAMINE 30 MG/1 ML VIAL IVPUSH ONE (10:16)
[2017-07-12] MEDS ORDERED: FAMOTIDINE 20 MG/50 ML IVPB 50 ML IVPB ONE ×2 (10:16→10:23)
[2017-07-12] MEDS ORDERED: MECLIZINE HCL 25 MG TABLET (FP) ONE (10:22)
[2017-07-12] MEDS ORDERED: KETOROLAC TROMETHAMINE 30 MG/1 ML VIAL ONE (10:22)
[2017-07-12 11:34] VITALS: BP 125/89; PULSE 92
--- NOTE | 2017-07-12 18:37 | EKG ---
Test Reason : Blood Pressure : / mmHG Vent. Rate : 070 BPM Atrial Rate : 070 BPM P-R Int : 138 ms QRS Dur : 086 ms QT Int : 390 ms P-R-T Axes : 038 054 016 degrees QTc Int : 421 ms NORMAL SINUS RHYTHM WITH SINUS ARRHYTHMIA NORMAL ECG WHEN COMPARED WITH ECG OF 28-MAR-2017 07:02, NO SIGNIFICANT CHANGE WAS FOUND Confirmed by RAMONA HARRINGTON MD ([id number]) on 07/12/2017 6:37:22 PM Referred By: Confirmed By:RAMONA HARRINGTON MD
== END 2017-07-12 11:38 | disposition home or self-care (01) ==
LOC: JER 06:35
PROC: 3E0F7GC Introduction of Other Therapeutic Substance into Respiratory Tract, Via Natural or Artificial Opening (ICD-10-PCS; principal; 2017-07-12)
PROC: 3E033GC Introduction of Other Therapeutic Substance into Peripheral Vein, Percutaneous Approach (ICD-10-PCS; 2017-07-12)
PROC: 3E0333Z Introduction of Anti-inflammatory into Peripheral Vein, Percutaneous Approach (ICD-10-PCS; 2017-07-12)
DX: M94.0 Chondrocostal junction syndrome [Tietze] (principal); J34.89 Other specified disorders of nose and nasal sinuses
CPT/HCPCS: 36415; 71020-TC; 80053; 81003; 84484; 84703; 85025; 85379; 93005; 93010; 94640; 96365; 96375; 99285-25

== ENCOUNTER 2017-09-12 03:51 | Emergency (ER) | payer OTHER ==
[2017-09-12 04:11] VITALS: BP 107/63; PULSE 75; TEMP 97.6; BMI 27.4
[2017-09-12] MEDS ORDERED: MECLIZINE HCL 25 MG TABLET (FP) PO ONE (04:19)
[2017-09-12] MEDS ORDERED: MECLIZINE HCL 25 MG TABLET (FP) ONE (04:55)
--- NOTE | 2017-09-12 05:06 | PDOC ---
History of Present Illness - General Chief Complaint: Shortness of Breath Stated Complaint: DIZZINESS/DIFFICULTY BREATHING Time Seen by Provider: 09/12/17 04:05 History Source: Patient Exam Limitations: No Limitations - History of Present Illness Initial Comments: 09/12/17 05:02 The patient is a 32F with a PMH of vertigo who presents to the ED with dizziness that woke her up. The patient states that 2 hours ago the patient woke up and felt very dizzy with accompanying shortness of breath. The patient states that her SOB is secondary to her gastritis. The patient also endorses a dizzy feeling, like the room is spinning. She denies fever, chills, nausea but did vomit once at home. Past History - Past Medical History Allergies/Adverse Reactions: Allergies Allergy/AdvReac Type Severity Reaction Status Date / Time No Known Allergies Allergy Verified 09/12/17 04:08 Home Medications: Ambulatory Orders Meclizine HCl 25 mg PO PRN #20 tablet 09/12/17 GI Disorders: Yes (Gastritis) Kidney Stones: Yes - Immunization History Immunization Up to Date: Yes - Suicide/Smoking/Psychosocial Hx Smoking Status: No Smoking History: Never smoked Have you smoked in the past 12 months: No Number of Cigarettes Smoked Daily: 0 Cigars Per Day: 0 Information on smoking cessation initiated: No Hx Alcohol Use: No Drug/Substance Use Hx: No Substance Use Type: None Review of Systems - Review of Systems Able to Perform ROS?: Yes Is the patient limited Irish proficient: No Constitutional: No: Chills, Fever HEENTM: Yes: Other (Dizziness). No: Blurred Vision, Double Vision, Ear Discharge, Nose Pain, Throat Pain Respiratory: No: Cough, Shortness of Breath Cardiac (ROS): No: Chest Pain, Palpitations ABD/GI: Yes: Vomiting. No: Nausea Musculoskeletal: No: Back Pain, Muscle Pain Integumentary: No: Bruising, Dryness, Rash Neurological: No: Headache, Numbness, Tingling, Weakness *Physical Exam - Vital Signs Last Vital Signs Temp Pulse Resp BP Pulse Ox 97.6 F 75 20 107/63 100 09/12/17 04:08 09/12/17 04:08 09/12/17 04:08 09/12/17 04:08 09/12/17 04:08 - Physical Exam General Appearance: Yes: Appropriately Dressed, Apparent Distress, Obese HEENT: positive: Normal Voice, Hearing Grossly Normal Respiratory/Chest: positive: Lungs Clear, Normal Breath Sounds. negative: Chest Tender Cardiovascular: positive: Regular Rhythm, Regular Rate, S1, S2. negative: Diastolic Murmur, Systolic Murmur Gastrointestinal/Abdominal: positive: Flat, Soft. negative: Tender Musculoskeletal: negative: CVA Tenderness, CVA Tenderness (R), CVA Tenderness (L ) Extremity: positive: Normal Inspection. negative: Swelling, Calf Tenderness Integumentary: positive: Dry, Warm Neurologic: positive: Fully Oriented, Alert, Normal Mood/Affect, Motor Strength 03/28 ED Treatment Course - Medications Given in the ED: ED Medications Discontinued Medications Generic Name Dose Route Start Last Admin Trade Name Freq PRN Reason Stop Dose Admin Meclizine HCl 25 mg 09/12/17 04:19 09/12/17 04:59 Antivert - PO 09/12/17 04:20 25 mg ONCE ONE Administration Medical Decision Making - Medical Decision Making 09/12/17 05:05 The patient is a 32F with a PMH of vertigo who presents to the ED with complaints of vertigo and gastritis causing SOB. I will treat the vertigo with meclizine because the patient states that her gastritis resolved when she came to the ED. Will reassess after meclizine. 09/12/17 05:11 Patient states she is feeling better and is ready for d/c. *DC/Admit/Observation/Transfer Diagnosis at time of Disposition: discharged home - Discharge Dispostion Disposition: HOME - Prescriptions Prescriptions: Meclizine HCl 25 mg PO PRN #20 tablet - Referrals Referrals: Elvia Ramirez MD [Primary Care Provider] - - Patient Instructions Printed Discharge Instructions: Vertigo (Alternative Therapy), Gastritis ( Alternative Therapy), DI for Vertigo, DI for Gastritis Additional Instructions: Please return to the ER if symptoms progress, worsen, or new symptoms arise. Please follow up with your primary care doctor in 2-3 days. Take Meclizine as needed for vertigo. Print Language: MAORI
== END 2017-09-12 05:17 | disposition home or self-care (01) ==
LOC: JER 03:51
DX: K29.70 Gastritis, unspecified, without bleeding (principal); R42 Dizziness and giddiness
CPT/HCPCS: 99282-25

== ENCOUNTER 2017-10-13 04:50 | Emergency (ER) | payer OTHER ==
--- NOTE | 2017-10-13 05:02 | PDOC ---
History of Present Illness <Anirudh Farmer - Last Filed: 10/13/17 05:02> - General History Source: Patient Exam Limitations: No Limitations - History of Present Illness Initial Comments: 10/13/17 06:10 Patient is a 32 year old female with a significant past medical history of gastritis, Hx recurrent kidney stones who presents to the ED with complaints of general body pain that began 4 days ago. Patient reports general body pain began 4 days ago suddenly while at home. She reports experiencing similar symptoms before but does not state when they occurred. Patient reports taking advil yesterday afternoon with minimal relief. She reports her last menstrual cycle ended yesterday. Denies any trauma to affected area. Denies fever, chills. Denies nausea, vomiting. Denies any other symptoms. Allergies: None Social history: No smoking. No alcohol. No illicit drugs. Surgical history: None PMD: None <Elbert Oliver - Last Filed: 10/13/17 06:10> - General Stated Complaint: PAIN Past History - Past Medical History Anemia: No Asthma: No Cancer: No Cardiac Disorders: No CVA: No COPD: No DVT: No Dementia: No Diabetes: No Dialysis: No GI Disorders: Yes (Gastritis) Disorders: No HTN: No Hypercholesterolemia: No Kidney Stones: Yes Liver Disease: No Psychiatric Problems: No Seizures: No Thyroid Disease: No Lung CA: No - Immunization History Immunization Up to Date: Yes - Suicide/Smoking/Psychosocial Hx Smoking Status: No Smoking History: Never smoked Have you smoked in the past 12 months: No Number of Cigarettes Smoked Daily: 0 Cigars Per Day: 0 Hx Alcohol Use: No Drug/Substance Use Hx: No Substance Use Type: None <Anirudh Farmer - Last Filed: 10/13/17 05:02> <Elbert Oliver - Last Filed: 10/13/17 06:10> - Past Medical History Allergies/Adverse Reactions: Allergies Allergy/AdvReac Type Severity Reaction Status Date / Time No Known Allergies Allergy Verified 10/13/17 05:05 Home Medications: Ambulatory Orders NK [No Known Home Medication] 10/13/17 Review of Systems - Review of Systems Able to Perform ROS?: Yes Comments:: 10/13/17 06:10 GENERAL/CONSTITUTIONAL: No fever or chills. No weakness. HEAD, EYES, EARS, NOSE AND THROAT: No change in vision. No ear pain or discharge. No sore throat. CARDIOVASCULAR: No chest pain or shortness of breath. RESPIRATORY: No cough, wheezing, or hemoptysis. GASTROINTESTINAL: No nausea, vomiting, diarrhea or constipation. GENITOURINARY: No dysuria, frequency, or change in urination. MUSCULOSKELETAL: +General body pain. No joint or muscle swelling SKIN: No rash NEUROLOGIC: No headache, vertigo, loss of consciousness, or change in strength/ sensation. ENDOCRINE: No increased thirst. No abnormal weight change. HEMATOLOGIC/LYMPHATIC: No anemia, easy bleeding, or history of blood clots. ALLERGIC/IMMUNOLOGIC: No hives or skin allergy. All Other Systems: Reviewed and Negative <Elbert Oliver - Last Filed: 10/13/17 06:10> *Physical Exam - Vital Signs Last Vital Signs Temp Pulse Resp BP Pulse Ox 97.6 F 90 14 118/93 100 10/13/17 05:05 10/13/17 05:05 10/13/17 05:05 10/13/17 05:05 10/13/17 05:05 - Physical Exam Comments: 10/13/17 06:10 GENERAL/CONSTITUTIONAL: No fever or chills. No weakness. HEAD, EYES, EARS, NOSE AND THROAT: No change in vision. No ear pain or discharge. No sore throat. CARDIOVASCULAR: No chest pain or shortness of breath. RESPIRATORY: No cough, wheezing, or hemoptysis. GASTROINTESTINAL: No nausea, vomiting, diarrhea or constipation. GENITOURINARY: No dysuria, frequency, or change in urination. MUSCULOSKELETAL: +General body pain. No joint or muscle swelling SKIN: No rash NEUROLOGIC: No headache, vertigo, loss of consciousness, or change in strength/ sensation. ENDOCRINE: No increased thirst. No abnormal weight change. HEMATOLOGIC/LYMPHATIC: No anemia, easy bleeding, or history of blood clots. ALLERGIC/IMMUNOLOGIC: No hives or skin allergy. <Elbert Oliver - Last Filed: 10/13/17 06:10> Heart Score/ECG Review - ECG Intrepretation Comment:: 10/13/17 05:23 Normal sinus rhythm Normal ECG <Elbert lOiver - Last Filed: 10/13/17 06:10> ED Treatment Course - LABORATORY CBC & Chemistry Diagram: 10/13/17 05:33 10/13/17 05:33 <Elbert Oliver - Last Filed: 10/13/17 06:10> *DC/Admit/Observation/Transfer - Attestations Physician Attestion: 10/13/17 05:02 I, Dr. Anirudh Farmer, attest that this document has been prepared under my direction and personally reviewed by me in its entirety. I further attest, that it accurately reflects all work, treatment, procedures and medical decision -making performed by me. <Anirudh Farmer - Last Filed: 10/13/17 05:02> - Attestations Scribe Attestion: 10/13/17 05:23 Documentation prepared by Elbert Oliver, acting as diagnostic medical sonographer for Anirudh Farmer MD/. <Elbert Oliver - Last Filed: 10/13/17 06:10>
[2017-10-13 05:07] VITALS: BMI 25.6
[2017-10-13] MEDS ORDERED: KETOROLAC TROMETHAMINE 60 MG/2 ML VIAL IM ONE (05:08)
[2017-10-13 05:39] LABS: BASOPHIL 0.5 % (0-2.0); EOSINOPHIL 1.9 % (0-4.5); MCH 28.5 pg (25.7-33.7); MCHC 32.9 g/dl (32.0-36.0); MEAN CELL VOLUME 86.8 fl (80-96); MEAN PLT VOLUME 8.8 fl (7.5-11.1); NEUTROPHILS 57.4 % (42.8-82.8); PLATELET COUNT 232 K/MM3 (134-434); RDW 14.8 % (11.6-15.6); WHITE BLOOD COUNT 6.8 K/mm3 (4.0-10.0)
[2017-10-13] MEDS ORDERED: KETOROLAC TROMETHAMINE 60 MG/2 ML VIAL ONE (05:47)
[2017-10-13 06:21] LABS: ALBUMIN 3.5 g/dl (3.4-5.0); ANION GAP 6 (8-16); CALCIUM 8.7 mg/dL (8.5-10.1); CO2 25 mmol/L (21-32); CREATININE 0.6 mg/dL (0.55-1.02); GLUCOSE,RANDOM 84 mg/dL (74-106); SGOT/AST 11 U/L (15-37); SGPT/ALT 20 U/L (12-78)
[2017-10-13 06:25] LABS: ALK PHOS 70 U/L (45-117); BILIRUBIN,TOTAL 0.3 mg/dL (0.2-1.0); CPK 97 IU/L (26-192); TOT PROT 7.1 g/dl (6.4-8.2); TROPONIN I < 0.02 ng/ml (0.00-0.05)
[2017-10-13 07:30] VITALS: BP 117/75; PULSE 80; TEMP 98.6
--- NOTE | 2017-10-13 08:18 | PDOC ---
*Physical Exam - Vital Signs Last Vital Signs Temp Pulse Resp BP Pulse Ox 98.6 F 80 18 117/75 98 10/13/17 07:29 10/13/17 07:29 10/13/17 07:29 10/13/17 07:29 10/13/17 07:29 - Physical Exam Comments: 10/13/17 08:13 gen: sleeping, easily arousable, moving all extremities heart: +s1s2 reg Lungs: cta b/l abd: soft, nt/nd +bs Ext: no c/c/e, moving all extremities. ED Treatment Course - LABORATORY CBC & Chemistry Diagram: 10/13/17 05:33 10/13/17 05:33 - ADDITIONAL ORDERS Additional order review: Laboratory Results 10/13/17 10/13/17 10/13/17 05:33 05:33 05:33 D-Dimer < 200 Sodium 138 Potassium 4.4 Chloride 107 Carbon Dioxide 25 Anion Gap 6 L BUN 12 D Creatinine 0.6 Creat Clearance w eGFR > 60 Random Glucose 84 Calcium 8.7 Total Bilirubin 0.3 AST 11 L ALT 20 Alkaline Phosphatase 70 Creatine Kinase 97 Troponin I < 0.02 Total Protein 7.1 Albumin 3.5 Serum , Qual Negative 10/13/17 05:33 RBC 4.27 MCV 86.8 MCHC 32.9 RDW 14.8 D MPV 8.8 Neutrophils % 57.4 Lymphocytes % 31.1 Monocytes % 9.1 Eosinophils % 1.9 Basophils % 0.5 - Medications Given in the ED: ED Medications Discontinued Medications Generic Name Dose Route Start Last Admin Trade Name Freq PRN Reason Stop Dose Admin Diphenhydramine HCl 50 mg 10/13/17 05:08 10/13/17 05:54 Benadryl Injection - IM 10/13/17 05:09 50 mg ONCE ONE Administration Ketorolac Tromethamine 60 mg 10/13/17 05:08 10/13/17 05:54 Toradol Injection - IM 10/13/17 05:09 60 mg ONCE ONE Administration Medical Decision Making - Medical Decision Making 10/13/17 08:14 a/p: 32yo female with generalized pain -labs reviewed. no acute findings. dimer negative pt feeling better labs discussed with the patient abd soft/nt nd no cp at this time stable for d/c to home requesting work note for today. *DC/Admit/Observation/Transfer Diagnosis at time of Disposition: Atypical chest pain - Discharge Dispostion Disposition: HOME Condition at time of disposition: Stable Admit: No - Prescriptions Prescriptions: Ibuprofen [Motrin -] 600 mg PO TID PRN #15 tablet PRN Reason: Pain Level 6-10 - Referrals Referrals: Elvia Ramirez MD [Primary Care Provider] - - Patient Instructions Printed Discharge Instructions: DI for Atypical Chest Pain Additional Instructions: Please take all meds as prescribed. Please call your PMD to arrange for follow up in 2-3 days if your pain continues. Please return to the ED with any further concerns. - Post Discharge Activity Forms/Work/School Notes: Back to Work
--- NOTE | 2017-10-13 13:56 | EKG ---
Test Reason : Blood Pressure : / mmHG Vent. Rate : 084 BPM Atrial Rate : 084 BPM P-R Int : 138 ms QRS Dur : 084 ms QT Int : 356 ms P-R-T Axes : 064 050 017 degrees QTc Int : 420 ms NORMAL SINUS RHYTHM NORMAL ECG WHEN COMPARED WITH ECG OF 12-JUL-2017 08:08, NO SIGNIFICANT CHANGE WAS FOUND Confirmed by BATOOL MCCAIN MD ([id number]) on 10/13/2017 1:56:38 PM Referred By: Confirmed By:BATOOL MCCAIN MD
== END 2017-10-13 08:41 | disposition home or self-care (01) ==
LOC: JER 04:50
PROC: 3E0233Z Introduction of Anti-inflammatory into Muscle, Percutaneous Approach (ICD-10-PCS; principal; 2017-10-13)
PROC: 3E033GC Introduction of Other Therapeutic Substance into Peripheral Vein, Percutaneous Approach (ICD-10-PCS; 2017-10-13)
DX: R07.89 Other chest pain (principal)
CPT/HCPCS: 36415; 80053; 82550; 84484; 84703; 85025; 85379; 93005; 93010; 96372; 99284-25

== ENCOUNTER 2017-12-01 02:08 | Emergency (ER) | payer OTHER ==
[2017-12-01 02:29] VITALS: BP 123/98; PULSE 98; TEMP 97.6; BMI 27.4
--- NOTE | 2017-12-01 03:08 | PDOC ---
History of Present Illness - General History Source: Patient Exam Limitations: No Limitations - History of Present Illness Initial Comments: 12/01/17 03:24 Patient is a 32 year old female, Maltese speaking, with a significant past medical history of gastritis and recurrent kidney stones who presents to the ED with complaints of sinus congestion for 6 months and headache. The patient reportedly was seen by an ENT specialist 1.5 months ago, had "a cleaning procedure", however, continues to experience severe sinus congestion and now has a frontal headache. She states she got a new puppy 2 months ago. Secondarily , she reports a pain under her right armpit. Denies fever, chills, nausea, vomiting. Denies any other symptoms. Allergies: None Social history: No smoking. No alcohol. No illicit drugs. Surgical history: None PMD: None <Sonya Causey - Last Filed: 12/01/17 03:24> <Aspen Lovett - Last Filed: 12/01/17 05:59> - General Chief Complaint: Cold Symptoms Stated Complaint: CONGESTION Time Seen by Provider: 12/01/17 03:08 Past History <Sonya Causey - Last Filed: 12/01/17 03:24> - Past Medical History Anemia: No Asthma: No Cancer: No Cardiac Disorders: No CVA: No COPD: No DVT: No Dementia: No Diabetes: No Dialysis: No GI Disorders: Yes (Gastritis) Disorders: No HTN: No Hypercholesterolemia: No Kidney Stones: Yes Liver Disease: No Psychiatric Problems: No Seizures: No Thyroid Disease: No Lung CA: No - Immunization History Immunization Up to Date: Yes - Suicide/Smoking/Psychosocial Hx Smoking Status: No Smoking History: Never smoked Have you smoked in the past 12 months: No Number of Cigarettes Smoked Daily: 0 Cigars Per Day: 0 Information on smoking cessation initiated: No Hx Alcohol Use: No Drug/Substance Use Hx: No Substance Use Type: None <Aspen Lovett - Last Filed: 12/01/17 05:59> - Past Medical History Allergies/Adverse Reactions: Allergies Allergy/AdvReac Type Severity Reaction Status Date / Time No Known Allergies Allergy Verified 12/01/17 02:26 Home Medications: Ambulatory Orders Ibuprofen [Motrin -] 600 mg PO TID PRN #15 tablet 10/13/17 Review of Systems - Review of Systems Able to Perform ROS?: Yes Comments:: 12/01/17 03:29 GENERAL/CONSTITUTIONAL: No fever or chills. No weakness. HEAD, EYES, EARS, NOSE AND THROAT: (+) nasal congestion. No change in vision. No ear pain or discharge. No sore throat. CARDIOVASCULAR: No chest pain or shortness of breath. RESPIRATORY: No cough, wheezing, or hemoptysis. GASTROINTESTINAL: No nausea, vomiting, diarrhea or constipation. GENITOURINARY: No dysuria, frequency, or change in urination. MUSCULOSKELETAL: No joint or muscle swelling or pain. No neck or back pain. SKIN: No rash NEUROLOGIC: (+) headache, No vertigo, loss of consciousness, or change in strength/sensation. ENDOCRINE: No increased thirst. No abnormal weight change. HEMATOLOGIC/LYMPHATIC: No anemia, easy bleeding, or history of blood clots. ALLERGIC/IMMUNOLOGIC: No hives or skin allergy. <Sonya Causey - Last Filed: 12/01/17 03:24> *Physical Exam - Vital Signs Last Vital Signs Temp Pulse Resp BP Pulse Ox 97.6 F 98 H 20 123/98 100 12/01/17 02:26 12/01/17 02:26 12/01/17 02:26 12/01/17 02:26 12/01/17 02:26 - Physical Exam Comments: 12/01/17 03:29 GENERAL: Awake, alert, and fully oriented, in no acute distress HEAD: No signs of trauma EYES: PERRLA, EOMI, sclera anicteric, conjunctiva clear ENT: (+) sinus congestion. Auricles normal inspection, hearing grossly normal, nares patent, oropharynx clear without exudates. Moist mucosa NECK: Normal ROM, supple, no lymphadenopathy, JVD, or masses LUNGS: Breath sounds equal, clear to auscultation bilaterally. No wheezes, and no crackles HEART: Regular rate and rhythm, normal S1 and S2, no murmurs, rubs or gallops ABDOMEN: Soft, nontender, normoactive bowel sounds. No guarding, no rebound. No masses EXTREMITIES: Normal range of motion, no edema. No clubbing or cyanosis. No cords, erythema, or tenderness NEUROLOGICAL: Cranial nerves II through XII grossly intact. Normal speech, normal gait SKIN: Warm, Dry, normal turgor, no rashes or lesions noted. <Sonya Causey - Last Filed: 12/01/17 03:24> - Vital Signs Last Vital Signs Temp Pulse Resp BP Pulse Ox 97.6 F 98 H 20 123/98 100 12/01/17 02:26 12/01/17 02:26 12/01/17 02:26 12/01/17 02:26 12/01/17 02:26 <Aspen Lovett - Last Filed: 12/01/17 05:59> ED Treatment Course - LABORATORY CBC & Chemistry Diagram: 12/01/17 03:30 12/01/17 03:30 <Aspen Lovett - Last Filed: 12/01/17 05:59> Medical Decision Making - Medical Decision Making 12/01/17 03:48 Pt comes with nasal congestion and sinus swelling. She has been seeing Dr. Roman of E[facility] across the street. Pt has been there for clearing of her sinuses and she received abx as well. Pt states that her congestion is getting worse. She is afebrile and she has no other findings on exam. Pt has a new puppy x 2 mos and we discussed that she may be allergic to the dog and that she may need to get rid of the dog. 12/01/17 03:[address] sinus is pending. 12/01/17 05:56 Patient Name: JOHN BELL THIS IS A PRELIMINARY REPORT FROM IMAGING DIRECT CASTING OPERATOR DATE OF SERVICE: 2017-12-01 05:08:49 IMAGES: 204 EXAM: CT PARANASAL SINUSES without contrast HISTORY: Congestion and focal pain COMPARISON: None. FINDINGS: The intraorbital contents are intact. Mild multifocal sinus mucosal thickening could represent very mild chronic sinusitis. No sinus air-fluid levels. The s bilateral mastoid air cells are well aerated. There is no fracture. IMPRESSION: Possible very mild chronic sinusitis. <Aspen Lovett - Last Filed: 12/01/17 05:59> *DC/Admit/Observation/Transfer - Attestations Scribe Attestion: 12/01/17 03:30 Documentation prepared by Sonya Causey, acting as medical staff coordinator for Aspen Lovett MD <Sonya Causey - Last Filed: 12/01/17 03:24> - Discharge Dispostion Admit: No <Aspen Lovett - Last Filed: 12/01/17 05:59> Diagnosis at time of Disposition: Congestion of nasal sinus - Discharge Dispostion Disposition: HOME Condition at time of disposition: Stable - Patient Instructions Printed Discharge Instructions: Sinusitis (Alternative Therapy), How to Reduce Environmental Allergens, Pets and Your Child's Allergies, Allergic Rhinitis, Allergen Skin Testing
[2017-12-01] MEDS ORDERED: diphenhydrAMINE HCL 25 MG CAPSULE (FP) PO ONE ×2 (03:25→03:26)
[2017-12-01 03:44] LABS: BASO % 0.4 % (0-2.0); EOS % 2.7 % (0-4.5); HEMATOCRIT 38.2 % (32.4-45.2); HEMOGLOBIN 12.5 GM/dL (10.7-15.3); LYMPH % 24.8 % (8-40); MCH 28.8 pg (25.7-33.7); MCHC 32.8 g/dl (32.0-36.0); MEAN CELL VOLUME 87.8 fl (80-96); MEAN PLT VOLUME 8.7 fl (7.5-11.1); MONO % 11.4 % (3.8-10.2); NEUT % 60.7 % (42.8-82.8); PLATELET COUNT 267 K/MM3 (134-434); RBC 4.35 M/mm3 (3.60-5.2); RDW 15.2 % (11.6-15.6); WHITE BLOOD COUNT 9.6 K/mm3 (4.0-10.0)
[2017-12-01 04:11] LABS: ALBUMIN 3.5 g/dl (3.4-5.0); ALK PHOS 83 U/L (45-117); ANION GAP 6 (8-16); BILIRUBIN,TOTAL 0.3 mg/dL (0.2-1.0); BLOOD UREA NITROGEN 11 mg/dL (7-18); CALCIUM 8.7 mg/dL (8.5-10.1); CHLORIDE 103 mmol/L (98-107); CO2 29 mmol/L (21-32); CREATININE 0.7 mg/dL (0.55-1.02); GLUCOSE,RANDOM 92 mg/dL (74-106); SGOT/AST 10 U/L (15-37); SGPT/ALT 17 U/L (12-78); SODIUM 138 mmol/L (136-145); TOT PROT 7.8 g/dl (6.4-8.2)
== END 2017-12-01 06:04 | disposition home or self-care (01) ==
LOC: JER 02:08
DX: J34.89 Other specified disorders of nose and nasal sinuses (principal)
CPT/HCPCS: 36415; 70486-TC; 80053; 84703; 85025; 85651; 99281-25

== ENCOUNTER 2018-02-15 06:12 | Emergency (ER) | payer OTHER ==
[2018-02-15 06:17] VITALS: TEMP 98.7; BMI 27.4
--- NOTE | 2018-02-15 06:42 | PDOC ---
History of Present Illness - General Chief Complaint: Toothache Stated Complaint: TOOTH PAIN/CHEST PAIN Time Seen by Provider: 02/15/18 06:15 History Source: Patient Exam Limitations: No Limitations - History of Present Illness Initial Comments: 02/15/18 06:36 The 32-year-old female with past medical history of chronic sinusitis and gastritis who presents to emergency department today with left chest pain and toothache for 2 days. Patient states she was lying down yesterday when she noticed nasal congestion and pain to her left chest. Patient did not take anything for the pain bleed the pain would go away but has not she is why she seeks out care today. Patient also with frontal headache and left lower molar pain. Although patient denies coughing she was coughing throughout exam. She denies fevers, chills, dizziness, shortness of breath, abdominal pain, nausea, vomiting, dysuria, diarrhea. Past History - Past Medical History Allergies/Adverse Reactions: Allergies Allergy/AdvReac Type Severity Reaction Status Date / Time No Known Allergies Allergy Verified 12/01/17 02:26 Home Medications: Ambulatory Orders Tramadol HCl 50 mg PO Q6H #8 tablet MDD 200 mg 02/15/18 Anemia: No Asthma: No Cancer: No Cardiac Disorders: No CVA: No COPD: No DVT: No Dementia: No Diabetes: No Dialysis: No GI Disorders: Yes (Gastritis) Disorders: No HTN: No Hypercholesterolemia: No Kidney Stones: Yes Liver Disease: No Psychiatric Problems: No Seizures: No Thyroid Disease: No Lung CA: No - Immunization History Immunization Up to Date: Yes - Suicide/Smoking/Psychosocial Hx Smoking Status: No Smoking History: Never smoked Have you smoked in the past 12 months: No Number of Cigarettes Smoked Daily: 0 Cigars Per Day: 0 Information on smoking cessation initiated: No Hx Alcohol Use: No Drug/Substance Use Hx: No Substance Use Type: None Cardiac Specific PMH - Complaint Specific PMHX GERD: No Review of Systems - Review of Systems Able to Perform ROS?: Yes Is the patient limited Norwegian proficient: No Constitutional: No: Symptoms Reported HEENTM: Yes: See HPI Respiratory: Yes: See HPI Cardiac (ROS): Yes: See HPI ABD/GI: No: Symptoms Reported : No: Symptoms Reported Musculoskeletal: No: Symptoms Reported Integumentary: No: Symptoms Reported Neurological: No: Symptoms reported *Physical Exam - Vital Signs Last Vital Signs Temp Pulse Resp BP Pulse Ox 98.7 F 90 14 94/62 99 02/15/18 06:15 02/15/18 13:40 02/15/18 06:15 02/15/18 13:40 02/15/18 13:40 - Physical Exam General Appearance: Yes: Appropriately Dressed. No: Apparent Distress HEENT: positive: TMs Normal, Nasal Congestion, Sinus Tenderness, Other (Poor dentition noted. Patient is missing multiple teeth with from that of previous dental interventions present. Inspection of nasal cavity reveals deterioration of septum with dry blood and posterior nasal cavity.). negative: Pharyngeal Erythema, Tonsillar Exudate, Tonsillar Erythema, Rhinorrhea Neck: positive: Trachea midline, Supple Respiratory/Chest: positive: Chest Tender (Point tenderness to anterior chest wall at second intercostal space at the axillary border), Lungs Clear, Normal Breath Sounds. negative: Respiratory Distress, Accessory Muscle Use Cardiovascular: positive: Regular Rhythm, Regular Rate, S1, S2. negative: Edema , Murmur Vascular Pulses: Dorsalis-Pedis (R): 2+, Doralis-Pedis (L): 2+ Gastrointestinal/Abdominal: positive: Normal Bowel Sounds, Soft. negative: Tender Musculoskeletal: positive: Normal Inspection. negative: CVA Tenderness Extremity: positive: Normal Capillary Refill, Normal Inspection Integumentary: positive: Normal Color, Dry, Warm Neurologic: positive: lead software engineer II-XII NML intact, Fully Oriented, Alert, Normal Mood/ Affect, Normal Response, Motor Strength / ED Treatment Course - LABORATORY CBC & Chemistry Diagram: 02/15/18 06:34 02/15/18 06:34 - ADDITIONAL ORDERS Additional order review: 02/15/18 06:34 RBC 4.12 MCV 89.4 MCHC 33.0 RDW 14.5 MPV 9.1 Neutrophils % 59.6 Lymphocytes % 29.1 Monocytes % 9.9 Eosinophils % 0.9 Basophils % 0.5 - Medications Given in the ED: ED Medications Discontinued Medications Generic Name Dose Route Start Last Admin Trade Name Freq PRN Reason Stop Dose Admin Oxycodone/Acetaminophen 1 combo 02/15/18 06:35 02/15/18 06:47 Percocet 5/325 - PO 02/15/18 06:36 1 combo ONCE ONE Administration Medical Decision Making - Medical Decision Making 02/15/18 06:42 CC: Left chest wall pain, toothache, nasal congestion A/P: 32-year-old female history of gastritis and chronic sinusitis with left-sided chest pain, sinus congestion, dry cough and toothache for 2 days. TMs pearly negron with appropriate light reflex. External auditory canal is clear without erythema or exudates Palpable sinus tenderness present. Inspection of nares reveals destruction of nasal septum with dry blood in the posterior nasal cavity. Oropharynx clear without erythema or exudates. Poor dentition noted with remnants of previous dental interventions present. No palpable abscesses to oral cavity Respirations even and unlabored. Lungs clear to auscultation bilaterally. RRR. S1 and S2 present. No murmur, rub or gallop. Abdomen soft nontender nondistended Differential diagnoses include [place] skeletal chest pain, myocardial infarction , pericarditis, endocarditis, pneumonia, upper respiratory infection, PE; sinusitis; dental pain Basic labs with cardiac profile x1 and d-dimer, urine testing, EKG, chest x-ray, Percocet 1 tab orally now 02/15/18 07:11 I gave report to ISSAC Garcia regarding this patient. Pt's initial chief complaint: left chest pain, toothache, sinus pressure Pt's work up completed prior to sign out: EKG Pt treatment given from prior staff: percocet Pt plan to be completed: labs, cxr Dispo: [ Pending] *DC/Admit/Observation/Transfer Diagnosis at time of Disposition: Pain, dental Chest pain Qualifiers: Chest pain type: unspecified Qualified Code(s): R07.9 - Chest pain, unspecified - Discharge Dispostion Disposition: HOME Condition at time of disposition: Improved - Prescriptions Prescriptions: Tramadol HCl 50 mg PO Q6H #8 tablet MDD 200 mg - Referrals Referrals: Elvia Ramirez MD [Primary Care Provider] - - Patient Instructions Printed Discharge Instructions: DI for Dental Pain Additional Instructions: Please follow-up with your dentist on Friday. - Post Discharge Activity
--- NOTE | 2018-02-15 07:33 | PDOC ---
*Physical Exam - Vital Signs Last Vital Signs Temp Pulse Resp BP Pulse Ox 98.7 F 120 H 14 150/90 99 02/15/18 06:15 02/15/18 06:15 02/15/18 06:15 02/15/18 06:15 02/15/18 06:15 - Physical Exam Comments: 02/15/18 07:32 appears mildly anxious General Appearance: Yes: Appropriately Dressed HEENT: positive: Normal Voice, Other (poor dentition, no e/o infection) Neck: positive: Supple Respiratory/Chest: positive: Lungs Clear, Normal Breath Sounds. negative: Respiratory Distress Cardiovascular: positive: Regular Rate, S1, S2 Extremity: positive: Normal Inspection Integumentary: positive: Dry, Warm Neurologic: positive: Fully Oriented, Alert ED Treatment Course - LABORATORY CBC & Chemistry Diagram: 02/15/18 06:34 02/15/18 06:34 - Medications Given in the ED: ED Medications Discontinued Medications Generic Name Dose Route Start Last Admin Trade Name Freq PRN Reason Stop Dose Admin Oxycodone/Acetaminophen 1 combo 02/15/18 06:35 02/15/18 06:47 Percocet 5/325 - PO 02/15/18 06:36 1 combo ONCE ONE Administration Medical Decision Making - Medical Decision Making 02/15/18 07:30 Signed out to me at 7 AM by CHENTE Guaman Patient is a 32-year-old female, history of ? anxiety, "sinus issues", gastritis, poor dentition, here with left lower wisdom tooth 2 days. No trauma or recent dental procedure. No facial swelling, fever or chills. Also complaining of vague left-sided chest pain. Patient found to be tachycardic to 120 with unremarkable exam otherwise. No obvious RF for DVT/PE. Denies illicit drug use. Labs, including ddimer pending. As per prior team, only need 1 trop. Has since been given pain meds. As per prior team if labs negative, patient can be discharged with pain control and to follow-up with dentist on Friday02/15/18 07:55 On reassessment, patient states dental pain is better. No chest pain or shortness of breath at this time. Repeat heart rate 87. Dimer neg, chem still pending. On chart review, patient has been seen in ED for similar chest pain multiple times and had negative workup including negative PE 07/1002/15/18 1:28 Labs unremarkable. Patient asymptomatic at this time. Will dc with pain control and have patient follow up with dental on Friday *DC/Admit/Observation/Transfer Diagnosis at time of Disposition: Pain, dental Chest pain Qualifiers: Chest pain type: unspecified Qualified Code(s): R07.9 - Chest pain, unspecified - Discharge Dispostion Disposition: HOME Condition at time of disposition: Improved - Prescriptions Prescriptions: Tramadol HCl 50 mg PO Q6H #8 tablet MDD 200 mg - Referrals Referrals: Elvia Ramirez MD [Primary Care Provider] - - Patient Instructions Printed Discharge Instructions: DI for Dental Pain Additional Instructions: Please follow-up with your dentist on Friday. - Post Discharge Activity
[2018-02-15 07:35] LABS: BASO % 0.5 % (0-2.0); EOS % 0.9 % (0-4.5); HEMATOCRIT 36.8 % (32.4-45.2); HEMOGLOBIN 12.1 GM/dL (10.7-15.3); LYMPH % 29.1 % (8-40); MCH 29.5 pg (25.7-33.7); MEAN CELL VOLUME 89.4 fl (80-96); MEAN PLT VOLUME 9.1 fl (7.5-11.1); MONO % 9.9 % (3.8-10.2); NEUT % 59.6 % (42.8-82.8); PLATELET COUNT 255 K/MM3 (134-434); RBC 4.12 M/mm3 (3.60-5.2); RDW 14.5 % (11.6-15.6)
[2018-02-15 11:48] LABS: ANION GAP 8 (8-16); BLOOD UREA NITROGEN 13 mg/dL (7-18); CHLORIDE 105 mmol/L (98-107); CO2 32 mmol/L (21-32); CREATININE 0.6 mg/dL (0.55-1.02); GLUCOSE,RANDOM 94 mg/dL (74-106); POTASSIUM 4.2 mmol/L (3.5-5.1); SODIUM 145 mmol/L (136-145)
[2018-02-15 11:49] LABS: ALBUMIN 4.1 g/dl (3.4-5.0); ALK PHOS 62 U/L (45-117); BILIRUBIN,TOTAL 0.7 mg/dL (0.2-1.0); CALCIUM 9.4 mg/dL (8.5-10.1); SGOT/AST 23 U/L (15-37); SGPT/ALT 24 U/L (12-78); TOT PROT 7.6 g/dl (6.4-8.2)
[2018-02-15 13:41] VITALS: BP 94/62; PULSE 90
--- NOTE | 2018-02-15 21:26 | EKG ---
Test Reason : Blood Pressure : / mmHG Vent. Rate : 084 BPM Atrial Rate : 084 BPM P-R Int : 148 ms QRS Dur : 084 ms QT Int : 376 ms P-R-T Axes : 073 071 025 degrees QTc Int : 444 ms SINUS RHYTHM WITH MARKED SINUS ARRHYTHMIA POSSIBLE LEFT ATRIAL ENLARGEMENT BORDERLINE ECG Confirmed by ULYSSES MCCLENDON MD ([id number]) on 02/15/2018 9:26:35 PM Referred By: Confirmed By:ULYSSES MCCLENDON MD
== END 2018-02-15 13:40 | disposition home or self-care (01) ==
LOC: JER 06:12
DX: R07.9 Chest pain, unspecified (principal); K08.89 Other specified disorders of teeth and supporting structures
CPT/HCPCS: 36415; 80053; 82550; 84484; 84703; 85025; 85379; 93005; 93010; 99283-25

== ENCOUNTER 2018-04-18 01:51 | Emergency (ER) | payer OTHER ==
[2018-04-18] MEDS ORDERED: SODIUM CHLORIDE 1,000 ML IV STA (02:33)
[2018-04-18] MEDS ORDERED: MAG HYDROX/AL HYDROX/SIMETH 30 ML UNIT-DOSE CUP PO ONE (02:33)
--- NOTE | 2018-04-18 02:33 | PDOC ---
History of Present Illness - General Stated Complaint: ABD PAIN History Source: Patient Exam Limitations: No Limitations - History of Present Illness Travel History: No Initial Comments: 04/18/18 02:28 Best Contact:[phone] PCP:Dr. Jeff Pmhx:Gastritis, Chronic sinusitis Pshx: C secrtion x4 Allergies:NKDA FH:Mother at age 55/IDDM; Father at age 58 from cardiac Social Hx: Cigarettes/ 0 Alcohol/ 0 Drugs/0 LMP:04/13/2018 33-year-old female presents to the emergency department complaining of epigastric discomfort 4d. Pain is described as 6/10 burning nonradiating intermittent discomfort. The pain is exacerbated on touch and there are no alleviating factors. Patient denies fever, chills, nausea/vomiting, headache, dizziness, lightheadedness, facial pains, rhinorrhea, nasal congestion, earache , sore throat, chest pain, shortness of breath, neck or back pains, abdominal pains, flank pains, urinary symptoms. Patient states her symptoms feel similar to her previous gastritis. Past History - Past Medical History Allergies/Adverse Reactions: Allergies Allergy/AdvReac Type Severity Reaction Status Date / Time No Known Allergies Allergy Verified 04/18/18 02:59 Home Medications: Ambulatory Orders Tramadol HCl 50 mg PO Q6H #8 tablet MDD 200 mg 02/15/18 Anemia: No Asthma: No Cancer: No Cardiac Disorders: No CVA: No COPD: No DVT: No Dementia: No Diabetes: No Dialysis: No GI Disorders: Yes (Gastritis) Disorders: No HTN: No Hypercholesterolemia: No Kidney Stones: Yes Liver Disease: No Psychiatric Problems: No Seizures: No Thyroid Disease: No Lung CA: No - Immunization History Immunization Up to Date: Yes - Suicide/Smoking/Psychosocial Hx Smoking Status: No Smoking History: Never smoked Have you smoked in the past 12 months: No Number of Cigarettes Smoked Daily: 0 Cigars Per Day: 0 Hx Alcohol Use: No Drug/Substance Use Hx: No Substance Use Type: None Abd/GI Specific PMHX - Complaint Specific PMHX Colitis: No Diverticulitis: No Gall Bladder Disease: No GERD: No Hepatitis: No Irritable Bowel Synd (IBS): No Pancreatitis: No GI Ulcer Disease: No Review of Systems - Review of Systems Able to Perform ROS?: Yes Comments:: 04/18/18 02:32 CONSTITUTIONAL: Absent: fever, chills, diaphoresis, generalized weakness, malaise, loss of appetite HEENT: Absent: rhinorrhea, nasal congestion, throat pain, throat swelling, difficulty swallowing, mouth swelling, ear pain, eye pain, visual Changes CARDIOVASCULAR: Absent: chest pain, loss of consciousness, palpitations, irregular heart rate, peripheral edema RESPIRATORY: Absent: cough, shortness of breath, dyspnea with exertion, orthopnea, wheezing, stridor, hemoptysis GASTROINTESTINAL: +epigastric pain Absent: abdominal distension, nausea, vomiting, diarrhea, constipation, melena, hematochezia GENITOURINARY: Absent: dysuria, frequency, urgency, hesitancy, hematuria, flank pain, genital pain MUSCULOSKELETAL: Absent: myalgia, arthralgia, joint swelling SKIN: Absent: rash, itching, pallor HEMATOLOGIC/IMMUNOLOGIC: Absent: easy bleeding, easy bruising, lymphadenopathy, frequent infections ENDOCRINE: Absent: unexplained weight gain, unexplained weight loss, heat intolerance, cold intolerance NEUROLOGIC: Absent: headache, focal weakness or paresthesias, dizziness, unsteady gait, seizure, mental status changes, bladder or bowel incontinence PSYCHIATRIC: Absent: anxiety, depression, suicidal or homicidal ideation, hallucinations. Is the patient limited Hungarian proficient: No *Physical Exam - Physical Exam Comments: 04/18/18 02:32 GENERAL: Well developed, well nourished. Awake and alert. No acute distress. HEENT: Normocephalic, atraumatic. PERRLA, EOMI. No conjunctival pallor. Sclera are non- icteric. Moist mucous membranes. Oropharynx is clear. NECK: Supple. Full ROM. No JVD. Carotid pulses 2+ and symmetric, without bruits. No thyromegaly. No lymphadenopathy. CARDIOVASCULAR: Regular rate and rhythm. No murmurs, rubs, or gallops. Distal pulses are 2+ and symmetric. PULMONARY: No evidence of respiratory distress. Lungs clear to auscultation bilaterally. No wheezing, rales or rhonchi. ABDOMINAL: +epigastric pain on palp Soft. Non-distended. No rebound or guarding. No organomegaly. Normoactive bowel sounds. MUSCULOSKELETAL Normal range of motion at all joints. No bony deformities or tenderness. No CVA tenderness. EXTREMITIES: No cyanosis. No clubbing. No edema. No calf tenderness. SKIN: Warm and dry. Normal capillary refill. No rashes. No jaundice. NEUROLOGICAL: Alert, awake, appropriate. Cranial nerves 2-12 intact. No deficits to light touch and temperature in face, upper extremities and lower extremities. No motor deficits in the in face, upper extremities and lower extremities. Normoreflexic in the upper and lower extremities. Normal speech. Toes are down- going bilaterally. Gait is normal without ataxia. PSYCHIATRIC: Cooperative. Good eye contact. Appropriate mood and affect. ED Treatment Course - LABORATORY CBC & Chemistry Diagram: 04/18/18 03:07 04/18/18 03:07 Progress Note - Progress Note Progress Note: 0439hrs: Pt states she is pain free and wishes to be d/c *DC/Admit/Observation/Transfer Diagnosis at time of Disposition: Epigastric abdominal pain - Discharge Dispostion Disposition: HOME Condition at time of disposition: Fair Decision to Admit order: No - Referrals Referrals: Elvia Ramirez MD [Primary Care Provider] - Es Gregg MD [Staff Physician] - - Patient Instructions Printed Discharge Instructions: DI for Epigastric Pain Additional Instructions: Follow-up with your doctor or and the borough coordinator listed on your discharge Avoid spicy food Return back to the emergency department for severe/persistent or worsening symptoms - Post Discharge Activity
[2018-04-18 02:59] VITALS: TEMP 97.9; BMI 29.2
[2018-04-18] MEDS ORDERED: FAMOTIDINE 20 MG/50 ML IVPB 20 MG/50 ML MG IVPB ONE (03:01)
[2018-04-18] MEDS ORDERED: MAG HYDROX/AL HYDROX/SIMETH 30 ML UNIT-DOSE CUP ONE (03:01)
[2018-04-18] MEDS ORDERED: FAMOTIDINE IV 20 MG/12 ML VIAL IVPUSH SCH ×2 (03:11→10:00)
[2018-04-18 03:15] LABS: BASO % 0.4 % (0-2.0); EOS % 0.5 % (0-4.5); HEMATOCRIT 37.3 % (32.4-45.2); HEMOGLOBIN 12.1 GM/dL (10.7-15.3); LYMPH % 24.6 % (8-40); MCH 28.4 pg (25.7-33.7); MCHC 32.5 g/dl (32.0-36.0); MEAN CELL VOLUME 87.5 fl (80-96); MEAN PLT VOLUME 9.2 fl (7.5-11.1); MONO % 6.7 % (3.8-10.2); NEUT % 67.8 % (42.8-82.8); PLATELET COUNT 284 K/MM3 (134-434); RBC 4.26 M/mm3 (3.60-5.2); RDW 13.8 % (11.6-15.6); WHITE BLOOD COUNT 7.2 K/mm3 (4.0-10.0)
[2018-04-18 03:35] VITALS: BP 130/84
[2018-04-18 03:40] LABS: ALBUMIN 3.7 g/dl (3.4-5.0); ALK PHOS 70 U/L (45-117); ANION GAP 6 (8-16); BILIRUBIN,TOTAL 0.3 mg/dL (0.2-1.0); BLOOD UREA NITROGEN 9 mg/dL (7-18); CALCIUM 8.9 mg/dL (8.5-10.1); CHLORIDE 107 mmol/L (98-107); CO2 27 mmol/L (21-32); CREATININE 0.7 mg/dL (0.55-1.02); GLUCOSE,RANDOM 96 mg/dL (74-106); LIPASE 118 U/L (73-393); SGPT/ALT 17 U/L (12-78); SODIUM 140 mmol/L (136-145); TOT PROT 8.3 g/dl (6.4-8.2)
[2018-04-18 03:56] LABS: POTASSIUM 4.9 mmol/L (3.5-5.1); SGOT/AST 26 U/L (15-37)
[2018-04-18 04:46] VITALS: PULSE 80
== END 2018-04-18 04:46 | disposition home or self-care (01) ==
LOC: JER 01:51
PROC: 3E0337Z Introduction of Electrolytic and Water Balance Substance into Peripheral Vein, Percutaneous Approach (ICD-10-PCS; principal; 2018-04-18)
DX: K29.60 Other gastritis without bleeding (principal)
CPT/HCPCS: 36415; 80053; 83690; 85025; 96360; 99282-25; J7030

== ENCOUNTER 2018-11-24 18:22 | Emergency (ER) | payer OTHER ==
[2018-11-24 18:49] VITALS: BP 127/85; PULSE 85; TEMP 97.7; BMI 27.8
--- NOTE | 2018-11-24 20:39 | PDOC ---
History of Present Illness - General Chief Complaint: Sore Throat Stated Complaint: SORE THROAT Time Seen by Provider: 11/24/18 20:13 History Source: Patient Exam Limitations: No Limitations - History of Present Illness Initial Comments: CHIEF COMPLAINT: 33 y/o female c/o sore throat x 3 days. HISTORY OF PRESENT ILLNESS: The patient also admits to tactile fever at home, painful swallowing and "balls" on her neck that are tender. She took tylenol yesterday for her symptoms. She denies cough, GUEVARA, runny nose, CP, SOB, n/v/d. Vital signs on arrival are within normal limits. REVIEW OF SYSTEMS: GENERAL/CONSTITUTIONAL: Subjective fever/chills. No weakness. No weight change. HEAD, EYES, EARS, NOSE AND THROAT: No change in vision. No ear pain or discharge. + sore throat. +neck pain CARDIOVASCULAR: No chest pain or shortness of breath. RESPIRATORY: No cough, wheezing, or hemoptysis. GASTROINTESTINAL: No nausea, vomiting, diarrhea. GENITOURINARY: No dysuria, frequency, or change in urination. MUSCULOSKELETAL: No joint or muscle swelling or pain. No neck or back pain. SKIN: No rash or easy bruising. NEUROLOGIC: No headache, vertigo, loss of consciousness, or loss of sensation. PHYSICAL EXAM: GENERAL: The patient is awake, alert, and fully oriented, in no acute distress. She has a mashed potato voice. HEAD: Normal with no signs of trauma. NECK: Tender anterior cervical lymphadenopathy b/l. ENT: Pupils equal, round and reactive to light, extraocular movements intact, sclera anicteric, conjunctiva clear. Erythematous tonsils with exudate b/l. Uvula midline. No trismus. No soft/hard palate deformities. LUNGS: Clear to auscultation bilaterally. Normal excursion. No respiratory distress or use of accessory muscles. CV: RRR, S1/S2, no MRG. Cap refill < 2 sec. ABDOMEN: Soft, non-distended, non-tender even to deep palpation, no hepatomegaly or splenomegaly, no masses. EXTREMITIES: Normal range of motion, no edema. NEUROLOGICAL: Normal speech, normal gait. CN II-XII grossly intact. SKIN: Warm, dry, normal turgor, no rashes or lesions noted. Past History - Past Medical History Allergies/Adverse Reactions: Allergies Allergy/AdvReac Type Severity Reaction Status Date / Time No Known Allergies Allergy Verified 11/24/18 18:45 Home Medications: Ambulatory Orders Ibuprofen [Advil -] 600 mg PO TID PRN 11/24/18 Anemia: No Asthma: No Cancer: No Cardiac Disorders: No CVA: No COPD: No DVT: No Dementia: No Diabetes: No Dialysis: No GI Disorders: Yes (Gastritis) Disorders: No HTN: No Hypercholesterolemia: No Kidney Stones: Yes Liver Disease: No Psychiatric Problems: No Seizures: No Thyroid Disease: No Lung CA: No - Immunization History Immunization Up to Date: Yes - Suicide/Smoking/Psychosocial Hx Smoking Status: No Smoking History: Unknown if ever smoked Have you smoked in the past 12 months: No Number of Cigarettes Smoked Daily: 0 Cigars Per Day: 0 Hx Alcohol Use: No Drug/Substance Use Hx: No Substance Use Type: None *Physical Exam - Vital Signs Last Vital Signs Temp Pulse Resp BP Pulse Ox 97.7 F 85 18 127/85 99 11/24/18 18:48 11/24/18 18:48 11/24/18 18:48 11/24/18 18:48 11/24/18 18:48 Moderate Sedation - Procedure Monitoring Vital Signs: Procedure Monitoring Vital Signs Temperature 97.7 F 11/24/18 18:48 Pulse Rate 85 11/24/18 18:48 Respiratory Rate 18 11/24/18 18:48 Blood Pressure 127/85 11/24/18 18:48 O2 Sat by Pulse Oximetry (%) 99 11/24/18 18:48 Medical Decision Making - Medical Decision Making A/P: 33 y/o female with strep throat based on exam findings. Plan is as follows: 1. PO tylenol Will send an rx for amoxicillin. INstructed the patient to take motrin for pain /fever every 6 hours, gargle with salt water and eat cold/soft foods to help with painful swallowing. Suggested new toothbrush after 3 days of abx. The patient verbalizes understanding of all instructions, has no further questions and is awaiting discharge. *DC/Admit/Observation/Transfer Diagnosis at time of Disposition: Strep throat - Discharge Dispostion Disposition: HOME Condition at time of disposition: Good - Referrals Referrals: Elvia Ramirez MD [Primary Care Provider] - Call tomorrow - Patient Instructions Printed Discharge Instructions: DI for Strep Throat Additional Instructions: Discharge Instructions: -You have an infection in your throat. -A prescription for antibiotics has been sent to your pharmacy; please take for entire 10 days -Take 600mg of over the counter Ibuprofen every 6 hours for pain/fever -Gargle with salt water 3 times per day -Eat soft foods and cold foods to help with sore throat -Drink plenty of fluids and get lots of rest -Get a new toothbrush after 3 days of antibiotics -Follow up with your doctor in 1 week Instrucciones de descarga: -Tienes natali infeccin en la garganta. -Natali receta de antibiticos guevara sido enviada a cage farmacia; por favor tome clemente 10 harden enteros -[place] 600 mg de Ibuprofeno sin receta cada 6 horas para el dolor / fiebre -Gargar con agua salada 3 veces al da -Come alimentos blandos y alimentos fros para ayudar con el dolor de garganta - Talia muchos lquidos y descansa mucho. -Recibe un nuevo cepillo de dientes despus de 3 wesley de antibiticos. -Seguir con cage mdico en 1 semana. Print Language: DUTCH - Post Discharge Activity Forms/Work/School Notes: Back to Work
[2018-11-24] MEDS ORDERED: ACETAMINOPHEN 325 MG TABLET (FP) PO ONE (20:48)
[2018-11-24] MEDS ORDERED: ACETAMINOPHEN 325 MG TABLET (FP) ONE (20:49)
== END 2018-11-24 21:05 | disposition home or self-care (01) ==
LOC: JERFT 18:22
DX: J02.0 Streptococcal pharyngitis (principal)
CPT/HCPCS: 99281-25

== ENCOUNTER 2018-11-29 12:12 | Emergency (ER) | payer OTHER ==
[2018-11-29 12:30] VITALS: BP 126/95; PULSE 94; TEMP 97.8; BMI 29.0
[2018-11-29] MEDS ORDERED: KETOROLAC TROMETHAMINE 60 MG/2 ML VIAL IM ONE (13:06)
[2018-11-29] MEDS ORDERED: CYCLOBENZAPRINE HCL 10 MG TABLET (FP) PO ONE (13:06)
--- NOTE | 2018-11-29 13:06 | PDOC ---
History of Present Illness - General Chief Complaint: Sore Throat Stated Complaint: BACK PAIN,THROAT Time Seen by Provider: 11/29/18 12:31 History Source: Patient Exam Limitations: No Limitations - History of Present Illness Initial Comments: 11/29/18 13:24 Pt is a 33 y/o F who presents to the ED with low back pain starting yesterday. Pt states she can't get comfortable. Denies trauma, heavy lifting, falling. She states the pain is located in the middle of her back. Denies, frequency, urgency , hematuria, saddle anesthesia, weakness to the extremities, bladder/bowel incontinence. Pt also complains of sore throat. Past History - Travel Traveled outside of the country in the last 30 days: No Close contact w/someone who was outside of country & ill: No - Past Medical History Allergies/Adverse Reactions: Allergies Allergy/AdvReac Type Severity Reaction Status Date / Time No Known Allergies Allergy Verified 11/29/18 12:29 Home Medications: Ambulatory Orders Amoxicillin - [Amoxicillin 500mg Capsule -] 1,000 mg PO DAILY #20 capsule Ibuprofen [Advil -] 600 mg PO TID PRN 11/24/18 Anemia: No Asthma: No Cancer: No Cardiac Disorders: No CVA: No COPD: No DVT: No Dementia: No Diabetes: No Dialysis: No GI Disorders: Yes (Gastritis) Disorders: No HTN: No Hypercholesterolemia: No Kidney Stones: Yes Liver Disease: No Psychiatric Problems: No Seizures: No Thyroid Disease: No Lung CA: No - Immunization History Immunization Up to Date: Yes - Suicide/Smoking/Psychosocial Hx Smoking Status: No Smoking History: Never smoked Have you smoked in the past 12 months: No Number of Cigarettes Smoked Daily: 0 Cigars Per Day: 0 Hx Alcohol Use: No Drug/Substance Use Hx: No Substance Use Type: None Review of Systems - Review of Systems Able to Perform ROS?: Yes Is the patient limited [place] proficient: No Constitutional: No: Chills, Fever, Weakness HEENTM: Yes: Throat Pain. No: Difficulty Swallowing Musculoskeletal: Yes: Back Pain. No: Joint Pain, Muscle Weakness Integumentary: No: Bruising, Rash Neurological: No: Numbness, Paresthesia, Weakness, Unsteady Gait, Other (bladder /bowel incontience, saddle anesthesia) *Physical Exam - Vital Signs Last Vital Signs Temp Pulse Resp BP Pulse Ox 97.8 F 94 H 18 126/95 99 11/29/18 12:27 11/29/18 12:27 11/29/18 12:27 11/29/18 12:27 11/29/18 12:27 - Physical Exam Comments: 11/29/18 13:38 GENERAL: Well developed, well nourished. Awake and alert. No acute distress. HEENT: Normocephalic, atraumatic. PERRLA, EOMI. No conjunctival pallor. Sclera are non- icteric. Moist mucous membranes. Oropharyn with erythema to the tonsils. Uvula midline. No exudate NECK: Supple. Full ROM. No JVD. Carotid pulses 2+ and symmetric, without bruits. No thyromegaly. No lymphadenopathy. CARDIOVASCULAR: Regular rate and rhythm. No murmurs, rubs, or gallops. Distal pulses are 2+ and symmetric. PULMONARY: No evidence of respiratory distress. Lungs clear to auscultation bilaterally. No wheezing, rales or rhonchi. ABDOMINAL: Soft. Non-tender. Non-distended. No rebound or guarding. No organomegaly. Normoactive bowel sounds. MUSCULOSKELETAL TTP of the midline back, L5-S1, with palpable knot consistent with muscle spasm. (-) straight leg raise.Normal range of motion at all joints. No bony deformities. No CVA tenderness. EXTREMITIES: No cyanosis. No clubbing. No edema. No calf tenderness. SKIN: Warm and dry. Normal capillary refill. No rashes. No jaundice. NEUROLOGICAL: Alert, awake, appropriate. Cranial nerves 2-12 intact. No deficits to light touch and temperature in face, upper extremities and lower extremities. No motor deficits in the in face, upper extremities and lower extremities. Normoreflexic in the upper and lower extremities. Normal speech. Toes are down- going bilaterally. Gait is normal without ataxia. PSYCHIATRIC: Cooperative. Good eye contact. Appropriate mood and affect. Moderate Sedation - Procedure Monitoring Vital Signs: Procedure Monitoring Vital Signs Temperature 97.8 F 11/29/18 12:27 Pulse Rate 94 H 11/29/18 12:27 Respiratory Rate 18 11/29/18 12:27 Blood Pressure 126/95 11/29/18 12:27 O2 Sat by Pulse Oximetry (%) 99 11/29/18 12:27 Medical Decision Making - Medical Decision Making 11/29/18 14:34 -Pt has LAD b/l and tonsilar erythema. Rapid strep ordered. -Pt with TTP of the midline back, L5-S1, with palpable knot consistent with muscle spasm. (-) straight leg raise. -No trauma, or fever. No saddle anesthesia or bladder/bowel incontinence. No CVA tenderness. -Pt is neurologically intact on exam with no focal findings. -Toradol given with relief of symptoms -Pt elopes from the ED prior to receiving throat culture results. *DC/Admit/Observation/Transfer Diagnosis at time of Disposition: Eloped from emergency department Low back pain Qualifiers: Chronicity: acute Back pain laterality: midline Sciatica presence: without sciatica Qualified Code(s): M54.5 - Low back pain - Discharge Dispostion Disposition: ELOPED Condition at time of disposition: Stable Decision to Admit order: No - Referrals Referrals: Elvia Ramirez MD [Primary Care Provider] - - Patient Instructions - Post Discharge Activity
[2018-11-29] MEDS ORDERED: KETOROLAC TROMETHAMINE 60 MG/2 ML VIAL ONE (13:11)
[2018-11-29] MEDS ORDERED: CYCLOBENZAPRINE HCL 10 MG TABLET (FP) ONE (13:11)
== END 2018-11-29 14:54 | disposition left against medical advice (07) ==
LOC: JERFT 12:12
PROC: 3E0233Z Introduction of Anti-inflammatory into Muscle, Percutaneous Approach (ICD-10-PCS; principal; 2018-11-29)
DX: M62.830 Muscle spasm of back (principal)
CPT/HCPCS: 87070; 87880; 96372; 99281-25

== ENCOUNTER 2021-05-02 02:21 | Emergency (ER) | payer OTHER ==
[2021-05-02 02:57] VITALS: BMI 27.4
[2021-05-02] MEDS ORDERED: ACETAMINOPHEN 1000 MG/100 ML VIAL (NON FORMULARY) IVPB ONE (02:59)
[2021-05-02] MEDS ORDERED: ACETAMINOPHEN INJECTION 100 ML IVPB ONE (03:11)
[2021-05-02 03:52] LABS: INR 1.29 (0.83-1.09); PROTHROMBIN TIME (PATIENT) 15.5 SEC (9.7-13.0)
[2021-05-02 03:54] LABS: ACTIVATED PTT 36.7 SECONDS (25.2-36.5)
[2021-05-02 03:59] LABS: CALCIUM 8.9 mg/dL (8.5-10.1)
[2021-05-02 04:00] LABS: BLOOD UREA NITROGEN 11.5 mg/dL (7-18)
[2021-05-02] MEDS ORDERED: LORazepam 2 MG/ML SDV VIAL IVPUSH ONE (04:02)
[2021-05-02 04:03] LABS: CREATININE 0.5 mg/dL (0.55-1.3)
[2021-05-02 04:04] LABS: BILIRUBIN,TOTAL 0.2 mg/dL (0.2-1); TOT PROT 8.4 g/dl (6.4-8.2)
[2021-05-02] MEDS ORDERED: LORazepam 2 MG/ML SDV VIAL ONE (04:11)
[2021-05-02 04:21] LABS: BASO % 0.4 % (0-2.0); EOS % 1.1 % (0-4.5); HEMATOCRIT 24.3 % (32.4-45.2); HEMOGLOBIN 7.3 GM/dL (10.7-15.3); LYMPH % 15.8 % (8-40); MCH 20.5 pg (25.7-33.7); MCHC 30.1 g/dl (32.0-36.0); MEAN CELL VOLUME 68.1 fl (80-96); MEAN PLT VOLUME 7.9 fl (7.5-11.1); NEUT % 74.7 % (42.8-82.8); PLATELET COUNT 718 K/MM3 (134-434); RBC 3.56 M/mm3 (3.60-5.2); RDW 18.9 % (11.6-15.6); WHITE BLOOD COUNT 11.2 K/mm3 (4.0-10.0)
[2021-05-02 05:21] LABS: ANISOCYTOSIS 2+; MACROCYTOSIS 0; PLATELET ESTIMATE INCREASED
[2021-05-02] MEDS ORDERED: VANCOMYCIN 1 GM in D5W (PRE-DOCKED) 1,000 MG/250 ML IVPB ONE (06:06)
[2021-05-02] MEDS ORDERED: CLINDAMYCIN 600MG PREMIX IVPB 600 MG/50 ML BAG IVPB ONE ×2 (06:06→06:11)
[2021-05-02] MEDS ORDERED: PIPERACILLIN/TAZOB 4.5 GM 4.5 GM in DEXTROSE 5%-WATER 100 ML IVPB ONE (06:06)
[2021-05-02 08:32] VITALS: BP 110/73; PULSE 128; TEMP 98.8
== END 2021-05-02 08:32 | disposition short-term general hospital (02) ==
LOC: JER 02:21
PROC: 3E0333Z Introduction of Anti-inflammatory into Peripheral Vein, Percutaneous Approach (ICD-10-PCS; principal; 2021-05-02)
PROC: 3E03329 Introduction of Other Anti-infective into Peripheral Vein, Percutaneous Approach (ICD-10-PCS; 2021-05-02)
PROC: 3E033NZ Introduction of Analgesics, Hypnotics, Sedatives into Peripheral Vein, Percutaneous Approach (ICD-10-PCS; 2021-05-02)
DX: H70.003 Acute mastoiditis without complications, bilateral (principal); J01.90 Acute sinusitis, unspecified
CPT/HCPCS: 36415; 70450-TC; 70487-TC; 70491-TC; 80053; 84703; 85025; 85610; 85730; 87880; 99285-25; C9803; J0131; Q9967; U0003; U0005

== ENCOUNTER 2021-09-23 22:21 | Emergency (ER) | payer OTHER ==
[2021-09-23 22:39] VITALS: BMI 27.4
[2021-09-23] MEDS ORDERED: LIDOCAINE VISCOUS 2% ORAL/TOP 15 ML UNIT-DOSE CUP MM ONE (22:42)
[2021-09-23] MEDS ORDERED: LIDOCAINE VISCOUS 2% ORAL/TOP 15 ML UNIT-DOSE CUP ONE (22:43)
[2021-09-23] MEDS ORDERED: ONDANSETRON 4 MG/2 ML VIAL IVPUSH ONE (22:43)
[2021-09-23] MEDS ORDERED: ONDANSETRON 4 MG/2 ML VIAL ONE (22:43)
[2021-09-23] MEDS ORDERED: HYDROmorphone HCL CARPU-JECT 2 MG/1 ML DISP.SYRIN IVPUSH ONE (23:28)
[2021-09-23] MEDS ORDERED: HYDROmorphone HCl 2 MG/ML VIAL ONE (23:30)
[2021-09-24 00:20] LABS: BASO % 0.3 % (0-2.0); EOS % 0.2 % (0-4.5); HEMATOCRIT 31.4 % (32.4-45.2); HEMOGLOBIN 9.9 GM/dL (10.7-15.3); LYMPH % 7.9 % (8-40); MCH 26.9 pg (25.7-33.7); MCHC 31.5 g/dl (32.0-36.0); MEAN CELL VOLUME 85.4 fl (80-96); MEAN PLT VOLUME 7.5 fl (7.5-11.1); MONO % 6.5 % (3.8-10.2); NEUT % 85.1 % (42.8-82.8); PLATELET COUNT 484 10^3/uL (134-434); RBC 3.68 M/mm3 (3.60-5.2); RDW 21.3 % (11.6-15.6)
[2021-09-24] MEDS ORDERED: BENZOCAINE/MENTH/CETYLPYRD CL 1 EACH LOZENGE MM ONE ×2 (00:25→02:53)
[2021-09-24] MEDS: BENZOCAINE/MENTHOL 1 EACH LOZENGE MM PRN ×2 (00:26→02:57)
[2021-09-24 00:29] LABS: CHLORIDE 103 mmol/L (98-107); SODIUM 143 mmol/L (136-145)
[2021-09-24 00:31] LABS: CALCIUM 8.8 mg/dL (8.5-10.1)
[2021-09-24 00:32] LABS: ALBUMIN 3.3 g/dl (3.4-5.0); BLOOD UREA NITROGEN 7.5 mg/dL (7-18); CO2 32 mmol/L (21-32); GLUCOSE,RANDOM 118 mg/dL (74-106); MAGNESIUM 2.6 mg/dL (1.8-2.4)
[2021-09-24 00:35] LABS: CREATININE 0.6 mg/dL (0.55-1.3); PHOSPHOROUS 2.8 mg/dL (2.5-4.9); SGOT/AST 17 U/L (15-37); SGPT/ALT 14 U/L (13-61)
[2021-09-24 00:36] LABS: BILIRUBIN,TOTAL 0.2 mg/dL (0.2-1); INR 1.11 (0.83-1.09); PROTHROMBIN TIME (PATIENT) 12.4 SEC (9.7-13.0); TOT PROT 7.9 g/dl (6.4-8.2)
[2021-09-24 00:38] LABS: ACTIVATED PTT 32.7 SECONDS (25.2-36.5); ALK PHOS 100 U/L (45-117)
[2021-09-24] MEDS ORDERED: ASPIRIN 81 MG CHEWABLE TABLETS PO ONE (01:07)
[2021-09-24 01:09] LABS: ANION GAP 8 MMOL/L (8-16)
[2021-09-24 01:13] LABS: ERYTHROCYTE SEDIMENTATION RATE 84 mm/hr (0-20)
[2021-09-24] MEDS ORDERED: CEFTRIAXONE 2,000 MG in DEXTROSE 5%-WATER - 50 ML IVPB ONE (01:21)
[2021-09-24] MEDS ORDERED: VANCOMYCIN 1 GM in D5W (PRE-DOCKED) 1,000 MG/250 ML IVPB ONE (01:22)
[2021-09-24] MEDS ORDERED: POTASSIUM CHLORIDE ORAL LIQUID 20 MEQ/15 ML PO ONE (01:22)
[2021-09-24] MEDS ORDERED: ASPIRIN 81 MG CHEWABLE TABLETS ONE (01:28)
[2021-09-24] MEDS ORDERED: CEFTRIAXONE 2 GM/100 ML BAG IVPB ONE (01:29)
[2021-09-24] MEDS ORDERED: VANCOMYCIN 1 GRAM (PRE-DOCKED) 1,000 MG/250 ML BAG IVPB ONE (01:29)
[2021-09-24] MEDS ORDERED: POTASSIUM CHLORIDE ORAL LIQUID 20 MEQ/15 ML ONE (01:29)
[2021-09-24] MEDS ORDERED: HYDROmorphone HCL CARPU-JECT 2 MG/1 ML DISP.SYRIN IVPUSH ONE ×2 (01:53→04:55)
[2021-09-24] MEDS ORDERED: POTASSIUM CHLORIDE 20 MEQ PREMIX IVPB 100 ML IVPB ONE (01:54)
[2021-09-24] MEDS ORDERED: KCL 10 MEQ IVPB 10 MEQ/100 ML INFUS.BAG IVPB SCH (02:00)
[2021-09-24] MEDS ORDERED: HYDROmorphone HCl 2 MG/ML VIAL ONE ×2 (02:01→04:58)
[2021-09-24 02:48] LABS: ANISOCYTOSIS 2+; MACROCYTOSIS 2+; PLATELET ESTIMATE INCREASED
[2021-09-24 05:15] VITALS: BP 160/101; PULSE 108
[2021-09-24 05:32] LABS: CHLORIDE 106 mmol/L (98-107); SODIUM 143 mmol/L (136-145)
[2021-09-24 05:34] LABS: BLOOD UREA NITROGEN 5.6 mg/dL (7-18); CALCIUM 8.1 mg/dL (8.5-10.1); CO2 29 mmol/L (21-32)
[2021-09-24 05:35] LABS: ALBUMIN 2.8 g/dl (3.4-5.0); GLUCOSE,RANDOM 117 mg/dL (74-106)
[2021-09-24 05:38] LABS: CREATININE 0.4 mg/dL (0.55-1.3); SGOT/AST 12 U/L (15-37); SGPT/ALT 14 U/L (13-61)
[2021-09-24 05:39] LABS: BILIRUBIN,TOTAL 0.2 mg/dL (0.2-1); TOT PROT 7.2 g/dl (6.4-8.2)
[2021-09-24 05:40] LABS: ALK PHOS 88 U/L (45-117)
[2021-09-24 07:12] LABS: ANION GAP 7 MMOL/L (8-16)
== END 2021-09-24 05:18 | disposition short-term general hospital (02) ==
LOC: JER 22:21
PROC: 3E03329 Introduction of Other Anti-infective into Peripheral Vein, Percutaneous Approach (ICD-10-PCS; principal; 2021-09-23)
PROC: 3E033NZ Introduction of Analgesics, Hypnotics, Sedatives into Peripheral Vein, Percutaneous Approach (ICD-10-PCS; 2021-09-23)
PROC: 3E033NZ Introduction of Analgesics, Hypnotics, Sedatives into Peripheral Vein, Percutaneous Approach (ICD-10-PCS; 2021-09-23)
PROC: 3E033NZ Introduction of Analgesics, Hypnotics, Sedatives into Peripheral Vein, Percutaneous Approach (ICD-10-PCS; 2021-09-23)
PROC: 3E033GC Introduction of Other Therapeutic Substance into Peripheral Vein, Percutaneous Approach (ICD-10-PCS; 2021-09-23)
PROC: 3E033GC Introduction of Other Therapeutic Substance into Peripheral Vein, Percutaneous Approach (ICD-10-PCS; 2021-09-23)
PROC: 3E03329 Introduction of Other Anti-infective into Peripheral Vein, Percutaneous Approach (ICD-10-PCS; 2021-09-23)
DX: T48.4X1A Poisoning by expectorants, accidental (unintentional), initial encounter (principal); K04.7 Periapical abscess without sinus; M31.30 Wegener's granulomatosis without renal involvement
CPT/HCPCS: 36415; 70490-TC; 71045-TC-FY; 80053; 80307; 82962; 83735; 84100; 84484; 84703; 85025; 85610; 85651; 85730; 86140; 86160; 86850; 86900; 86901; 87040; 93005; 93010; 96374; 96375; 96376; 99285-25; C9803; U0003; U0005

== ENCOUNTER 2022-02-06 21:08 | Emergency (ER) | payer OTHER ==
[2022-02-06 21:28] VITALS: TEMP 97.8; BMI 20.9
[2022-02-06] MEDS ORDERED: SODIUM CHLORIDE 0.9% 500 ML INFUS.BAG IV ONE (22:29)
[2022-02-06] MEDS ORDERED: morphine CARPU-JECT 4 MG/1 ML DISP.SYRIN IVPUSH ONE (22:35)
[2022-02-06] MEDS ORDERED: morphine SULFATE 4 MG/ML VIAL ONE (22:53)
[2022-02-06 23:12] LABS: BASO % 0.5 % (0-2.0); HEMATOCRIT 29.1 % (32.4-45.2); HEMOGLOBIN 9.2 GM/dL (10.7-15.3); LYMPH % 18.2 % (8-40); MCH 25.2 pg (25.7-33.7); MCHC 31.5 g/dl (32.0-36.0); MEAN CELL VOLUME 80.1 fl (80-96); MEAN PLT VOLUME 7.3 fl (7.5-11.1); NEUT % 72.3 % (42.8-82.8); PLATELET COUNT 657 10^3/uL (134-434); RBC 3.63 M/mm3 (3.60-5.2); RDW 16.9 % (11.6-15.6); WHITE BLOOD COUNT 9.7 K/mm3 (4.0-10.0)
[2022-02-06 23:25] LABS: CALCIUM 8.5 mg/dL (8.5-10.1)
[2022-02-06 23:26] LABS: ALBUMIN 2.9 g/dl (3.4-5.0); BLOOD UREA NITROGEN 12.4 mg/dL (7-18); MAGNESIUM 2.1 mg/dL (1.8-2.4)
[2022-02-06 23:29] LABS: CREATININE 0.5 mg/dL (0.55-1.3)
[2022-02-06 23:31] LABS: BILIRUBIN,TOTAL 0.2 mg/dL (0.2-1); TOT PROT 7.7 g/dl (6.4-8.2)
[2022-02-06] MEDS ORDERED: diphenhydrAMINE HCL 12.5 MG/5 ML UNIT-DOSE CUPS PO ONE (23:44)
[2022-02-06] MEDS ORDERED: diphenhydrAMINE HCL 12.5 MG/5 ML UNIT-DOSE CUPS ONE (23:52)
[2022-02-06 23:54] LABS: ACTIVATED PTT 38.3 SECONDS (25.2-36.5); INR 1.22 (0.83-1.09); PROTHROMBIN TIME (PATIENT) 14.1 SEC (9.7-13.0)
[2022-02-07] MEDS ORDERED: SODIUM CHLORIDE 0.9% 500 ML INFUS.BAG IV ONE (02:59)
[2022-02-07 03:50] VITALS: BP 130/94; PULSE 109
== END 2022-02-07 04:15 | disposition short-term general hospital (02) ==
LOC: JER 21:08
PROC: 3E033GC Introduction of Other Therapeutic Substance into Peripheral Vein, Percutaneous Approach (ICD-10-PCS; principal; 2022-02-06)
PROC: 3E033NZ Introduction of Analgesics, Hypnotics, Sedatives into Peripheral Vein, Percutaneous Approach (ICD-10-PCS; 2022-02-06)
DX: J32.9 Chronic sinusitis, unspecified (principal); J02.9 Acute pharyngitis, unspecified
CPT/HCPCS: 36415; 70486-TC; 70491-TC; 80053; 83735; 84703; 85025; 85610; 85730; 87040; 93005; 93010; 99285-25

== ENCOUNTER 2022-06-01 22:05 | Inpatient (IN) | payer OTHER ==
[2022-06-01 22:19] VITALS: BMI 19.3
[2022-06-02] MEDS ORDERED: morphine CARPU-JECT 2 MG/1 ML DISP.SYRIN IVPUSH ONE ×2 (00:31→06:53)
[2022-06-02] MEDS ORDERED: morphine CARPU-JECT 4 MG/1 ML DISP.SYRIN IVPUSH ONE ×2 (01:18→21:09)
[2022-06-02] MEDS ORDERED: morphine SULFATE 4 MG/ML VIAL ONE ×2 (01:35→21:14)
[2022-06-02] MEDS ORDERED: ONDANSETRON 4 MG/2 ML VIAL ONE ×2 (01:38→04:23)
[2022-06-02] MEDS ORDERED: ONDANSETRON 4 MG/2 ML VIAL IVPUSH ONE ×2 (01:42→04:03)
[2022-06-02] MEDS ORDERED: SODIUM CHLORIDE 1,000 ML IV STA (01:42)
[2022-06-02 02:05] LABS: BASO % 0.4 % (0-2.0); EOS % 0.4 % (0-4.5); HEMATOCRIT 30.8 % (32.4-45.2); LYMPH % 15.3 % (8-40); MCH 24.7 pg (25.7-33.7); MCHC 32.5 g/dl (32.0-36.0); MEAN PLT VOLUME 7.9 fl (7.5-11.1); NEUT % 74.9 % (42.8-82.8); PLATELET COUNT 611 10^3/uL (134-434); RBC 4.05 M/mm3 (3.60-5.2); RDW 18.3 % (11.6-15.6); WHITE BLOOD COUNT 6.6 K/mm3 (4.0-10.0)
[2022-06-02 02:25] LABS: CHLORIDE 106 mmol/L (98-107); SODIUM 143 mmol/L (136-145)
[2022-06-02 02:27] LABS: ALBUMIN 3.1 g/dl (3.4-5.0); CALCIUM 8.4 mg/dL (8.5-10.1); CO2 27 mmol/L (21-32); GLUCOSE,RANDOM 97 mg/dL (74-106)
[2022-06-02 02:28] LABS: BLOOD UREA NITROGEN 7.1 mg/dL (7-18)
[2022-06-02 02:34] LABS: ALK PHOS 144 U/L (45-117); BILIRUBIN,TOTAL 0.5 mg/dL (0.2-1); CREATININE 0.5 mg/dL (0.55-1.3); SGOT/AST 16 U/L (15-37); SGPT/ALT 12 U/L (13-61)
[2022-06-02 03:40] LABS: ANION GAP 10 MMOL/L (8-16)
[2022-06-02] MEDS ORDERED: POTASSIUM CHLORIDE TABS 20 MEQ TABLET.ER (FP) PO ONE ×3 (03:43→14:50)
[2022-06-02 04:49] LABS: EPI CELLS >36 /uL (0-25.1); HYALINE CASTS 1 /uL (0-3.1); PH,URINE 6.5 (5.0-8.0); URINE APPEARANCE CLEAR; URINE BACTERIA 209 /uL (0-1359); URINE BILIRUBIN NEGATIVE (NEGATIVE); URINE COLOR YELLOW; URINE GLUCOSE (UA) NEGATIVE (NEGATIVE); URINE KETONE NEGATIVE (NEGATIVE); URINE LEUK ESTERASE NEGATIVE (NEGATIVE); URINE NITRITE NEGATIVE (NEGATIVE); URINE PROTEIN NEGATIVE (NEGATIVE); URINE RBC 24 /uL (0-23.9); URINE UROBILINOGEN 0.2 mg/dL (0.2-1.0); URINE WBC 12 /uL (0-25.8)
[2022-06-02 05:14] LABS: CHLORIDE 108 mmol/L (98-107); SODIUM 144 mmol/L (136-145)
[2022-06-02 05:16] LABS: BLOOD UREA NITROGEN 5.7 mg/dL (7-18); CO2 27 mmol/L (21-32); GLUCOSE,RANDOM 96 mg/dL (74-106)
[2022-06-02 05:17] LABS: MAGNESIUM 2.1 mg/dL (1.8-2.4)
[2022-06-02 05:20] LABS: CREATININE 0.4 mg/dL (0.55-1.3)
[2022-06-02 05:29] LABS: ANION GAP 9 MMOL/L (8-16)
[2022-06-02] MEDS ORDERED: ACETAMINOPHEN 1000 MG/100 ML BAG IVPB ONE (06:09)
[2022-06-02] MEDS ORDERED: LIDOCAINE 5% TOPICAL PATCH TP ONE (06:10)
[2022-06-02] MEDS ORDERED: KCL 10 MEQ IVPB 10 MEQ/100 ML INFUS.BAG IVPB ONE (06:25)
[2022-06-02] MEDS ORDERED: LIDOCAINE 5% TOPICAL PATCH ONE (06:25)
[2022-06-02] MEDS ORDERED: ACETAMINOPHEN INJECTION 100 ML IVPB ONE (06:25)
[2022-06-02] MEDS ORDERED: KCL 10 MEQ IVPB 30 MEQ/300 ML INFUS.BAG IVPB ONE (07:53)
[2022-06-02] MEDS: POTASSIUM CHLORIDE 10 MEQ PREMIX IVPB (POTASSIUM RIDER) IVPB SCH ×3 (08:12→10:39)
[2022-06-02] MEDS ORDERED: IBUPROFEN 800 MG/8 ML IJ IVPB PRN (08:50)
[2022-06-02] MEDS ORDERED: ACETAMINOPHEN 325 MG TABLET (FP) PO PRN (08:50)
[2022-06-02] MEDS ORDERED: POTASSIUM CHLORIDE ORAL LIQUID 20 MEQ/15 ML PO ONE ×2 (09:53→17:32)
[2022-06-02] MEDS ORDERED: POTASSIUM CHLORIDE ORAL LIQUID 20 MEQ/15 ML ONE ×2 (10:20→17:43)
[2022-06-02] MEDS: D5-NS + 20 MEQ KCL - 20 MEQ/1,000 ML INFUS.BAG IV SCH (10:40)
[2022-06-02] MEDS ORDERED: ONDANSETRON 4 MG/2 ML VIAL IVPUSH PRN (11:04)
[2022-06-02] MEDS ORDERED: AMOX TR/POTASSIUM CLAVULANATE 250 MG/5 ML BOTTLE PO ONE (12:00)
[2022-06-02 14:11] LABS: CHLORIDE 110 mmol/L (98-107); SODIUM 146 mmol/L (136-145)
[2022-06-02 14:13] LABS: CALCIUM 8.1 mg/dL (8.5-10.1)
[2022-06-02 14:14] LABS: BLOOD UREA NITROGEN 4.6 mg/dL (7-18); CO2 28 mmol/L (21-32); GLUCOSE,RANDOM 83 mg/dL (74-106); MAGNESIUM 2.1 mg/dL (1.8-2.4)
[2022-06-02 14:15] LABS: CREATININE 0.4 mg/dL (0.55-1.3)
[2022-06-02 14:19] LABS: ANION GAP 7 MMOL/L (8-16)
[2022-06-02] MEDS: POTASSIUM CHLORIDE TABS 20 MEQ TABLET.ER (FP) PO ONE ×2 (14:50→14:54)
[2022-06-02] MEDS ORDERED: LIDOCAINE VISCOUS 2% ORAL/TOP 100 ML BOTTLE MM PRN (14:59)
[2022-06-02] MEDS ORDERED: KETOROLAC TROMETHAMINE 30 MG/1 ML VIAL IM ONE (14:59)
[2022-06-02] MEDS ORDERED: KETOROLAC TROMETHAMINE 30 MG/1 ML VIAL ONE (15:40)
[2022-06-02] MEDS ORDERED: LIDOCAINE VISCOUS 2% ORAL/TOP 15 ML UNIT-DOSE CUP ONE (15:40)
[2022-06-02] MEDS ORDERED: AMPICILLIN NA/SULBACTAM NA 3 GM in SODIUM CHLORIDE 100 ML IVPB SCH (15:45)
[2022-06-02] MEDS ORDERED: POTASSIUM CHLORIDE TABS 10 MEQ TABLET.ER (FP) PO ONE (17:30)
[2022-06-02] MEDS ORDERED: AMOX TR/POTASSIUM CLAVULANATE 600 MG/5 ML PO ONE (17:32)
[2022-06-02] MEDS ORDERED: ONDANSETRON *ODT* 4 MG TABLET SL PRN (17:32)
[2022-06-02] MEDS ORDERED: LIDOCAINE PATCH REMOVAL MC ONE (22:00)
[2022-06-02] MEDS ORDERED: diphenhydrAMINE HCL 25 MG CAPSULE (FP) PO ONE ×2 (23:44→23:56)
[2022-06-03] MEDS: KETOROLAC TROMETHAMINE 30 MG/1 ML VIAL IM PRN ×2 (07:50→16:09)
[2022-06-03] MEDS: AMOX TR/POTASSIUM CLAVULANATE 600 MG/5 ML PO SCH ×2 (08:51→17:43)
[2022-06-03] MEDS: D5-NS + 20 MEQ KCL - 20 MEQ/1,000 ML INFUS.BAG IV SCH (09:30)
[2022-06-03 09:31] LABS: CHLORIDE 106 mmol/L (98-107); SODIUM 143 mmol/L (136-145)
[2022-06-03 09:45] LABS: BLOOD UREA NITROGEN 4.7 mg/dL (7-18); GLUCOSE,RANDOM 81 mg/dL (74-106)
[2022-06-03 09:46] LABS: CO2 26 mmol/L (21-32)
[2022-06-03 09:48] LABS: CREATININE 0.4 mg/dL (0.55-1.3)
[2022-06-03] MEDS ORDERED: POTASSIUM CHLORIDE TABS 20 MEQ TABLET.ER (FP) PO SCH (10:00)
[2022-06-03 10:02] LABS: CALCIUM 8.5 mg/dL (8.5-10.1)
[2022-06-03 10:12] LABS: ANION GAP 11 MMOL/L (8-16)
[2022-06-03] MEDS ORDERED: ACETAMINOPHEN 1000 MG/100 ML BAG IVPB PRN (13:43)
[2022-06-03 14:05] VITALS: TEMP 98.9
[2022-06-03] MEDS ORDERED: KETOROLAC TROMETHAMINE 30 MG/1 ML VIAL ONE (16:05)
[2022-06-03] MEDS ORDERED: POTASSIUM CHLORIDE ORAL LIQUID 20 MEQ/15 ML PO ONE ×2 (16:25→18:13)
[2022-06-03 16:28] LABS: BLOOD UREA NITROGEN 5.8 mg/dL (7-18); CALCIUM 8.1 mg/dL (8.5-10.1)
[2022-06-03 16:32] LABS: CREATININE 0.4 mg/dL (0.55-1.3)
[2022-06-03] MEDS ORDERED: POTASSIUM CHLORIDE ORAL LIQUID 20 MEQ/15 ML ONE (16:36)
[2022-06-03 19:09] VITALS: BP 135/91; PULSE 92
[2022-06-03] MEDS ORDERED: POTASSIUM CHLORIDE ORAL LIQUID 20 MEQ/15 ML PO SCH (22:00)
[2022-06-03] MEDS ORDERED: CRESEMBA 186 MG PO SCH (22:00)
== END 2022-06-03 20:35 | disposition left against medical advice (07) | DRG 425 ==
LOC: JER 22:05 → JERBED 06-02 06:10
PROVIDERS: ADMIT Hospitalist; ATTEND Internal Medicine
DX: E87.6 Hypokalemia (principal); M31.30 Wegener's granulomatosis without renal involvement; J32.9 Chronic sinusitis, unspecified; R09.81 Nasal congestion; R63.6 Underweight; Z68.1 Body mass index [BMI] 19.9 or less, adult; R51.9 Headache, unspecified
CPT/HCPCS: 0241U-QW; 36415; 70486-TC; 70490-TC; 71045-TC-FY; 80048; 80053; 81003; 83605; 83735; 84703; 85025; 87040; 87086; 93005; 93010; 99285-25

== ENCOUNTER 2022-08-02 00:25 | Emergency (ER) | payer OTHER ==
[2022-08-02 00:56] VITALS: BMI 19.3
[2022-08-02] MEDS ORDERED: morphine SULFATE 4 MG/ML VIAL IVPUSH ONE (01:38)
[2022-08-02] MEDS ORDERED: FLUCONAZOLE 100 MG/D5W 50 ML IVPB ONE (01:39)
[2022-08-02] MEDS ORDERED: morphine SULFATE 4 MG/ML VIAL ONE (01:59)
[2022-08-02 06:08] VITALS: BP 143/95; PULSE 110; RESP 20; TEMP 98.1
== END 2022-08-02 06:10 | disposition short-term general hospital (02) ==
LOC: JER 00:25
PROC: 3E033GC Introduction of Other Therapeutic Substance into Peripheral Vein, Percutaneous Approach (ICD-10-PCS; principal; 2022-08-02)
DX: M31.30 Wegener's granulomatosis without renal involvement (principal); Q38.5 Congenital malformations of palate, not elsewhere classified
CPT/HCPCS: 99284-25

== ENCOUNTER 2023-06-10 12:06 | Emergency (ER) | payer OTHER ==
[2023-06-10 12:16] VITALS: BP 109/75; PULSE 60; RESP 20; TEMP 98.4; BMI 19.3
[2023-06-10] MEDS ORDERED: ACETAMINOPHEN 1000 MG/100 ML BAG IVPB ONE (12:32)
[2023-06-10] MEDS ORDERED: SODIUM CHLORIDE 1,000 ML IV STA (12:32)
[2023-06-10] MEDS ORDERED: FAMOTIDINE 20 MG/50 ML IVPB 20 MG/50 ML MG IVPB ONE ×2 (12:34→12:43)
[2023-06-10] MEDS ORDERED: MAG HYDROX/AL HYDROX/SIMETH 30 ML UNIT-DOSE CUP PO ONE (12:34)
[2023-06-10] MEDS ORDERED: MAG HYDROX/AL HYDROX/SIMETH 30 ML UNIT-DOSE CUP ONE (12:43)
[2023-06-10] MEDS ORDERED: ACETAMINOPHEN INJECTION 100 ML IVPB ONE (12:43)
[2023-06-10 13:53] LABS: BASO % 0.8 % (0-2.0); EOS % 0.7 % (0-4.5); HEMATOCRIT 38.3 % (32.4-45.2); HEMOGLOBIN 12.7 GM/dL (10.7-15.3); LYMPH % 31.8 % (8-40); MCH 29.1 pg (25.7-33.7); MCHC 33.3 g/dl (32.0-36.0); MEAN CELL VOLUME 87.3 fl (80-96); MEAN PLT VOLUME 9.9 fl (7.5-11.1); MONO % 8.2 % (3.8-10.2); NEUT % 58.5 % (42.8-82.8); PLATELET COUNT 275 10^3/uL (134-434); RBC 4.38 M/mm3 (3.60-5.2); RDW 16.9 % (11.6-15.6); WHITE BLOOD COUNT 4.8 K/mm3 (4.0-10.0)
[2023-06-10 13:58] LABS: EPI CELLS >36 /uL (0-25.1); HYALINE CASTS 3 /uL (0-3.1); URINE APPEARANCE CLOUDY; URINE BACTERIA 278 /uL (0-1359); URINE BILIRUBIN NEGATIVE (NEGATIVE); URINE COLOR DK YELLOW; URINE GLUCOSE (UA) NEGATIVE (NEGATIVE); URINE KETONE TRACE (NEGATIVE); URINE LEUK ESTERASE TRACE (NEGATIVE); URINE NITRITE NEGATIVE (NEGATIVE); URINE PROTEIN 1+ (NEGATIVE); URINE RBC 3598 /uL (0-23.9); URINE WBC 37 /uL (0-25.8)
[2023-06-10 14:00] LABS: HCG,QUALITATIVE URINE Negative
[2023-06-10 14:02] LABS: INR 1.12 (0.83-1.09)
[2023-06-10 14:04] LABS: ACTIVATED PTT 30.4 SECONDS (25.2-36.5)
[2023-06-10 14:20] LABS: POTASSIUM 4.3 mmol/L (3.5-5.1)
[2023-06-10 14:24] LABS: ALBUMIN 3.9 g/dl (3.4-5.0); BLOOD UREA NITROGEN 14.8 mg/dL (7-18)
[2023-06-10 14:26] LABS: CREATININE 0.6 mg/dL (0.55-1.3)
[2023-06-10 14:27] LABS: BILIRUBIN,TOTAL 0.7 mg/dL (0.2-1); TOT PROT 7.9 g/dl (6.4-8.2)
== END 2023-06-10 16:15 | disposition home or self-care (01) ==
LOC: JER 12:06
PROC: 3E033GC Introduction of Other Therapeutic Substance into Peripheral Vein, Percutaneous Approach (ICD-10-PCS; principal; 2023-06-10)
PROC: 3E033GC Introduction of Other Therapeutic Substance into Peripheral Vein, Percutaneous Approach (ICD-10-PCS; 2023-06-10)
PROC: 3E0337Z Introduction of Electrolytic and Water Balance Substance into Peripheral Vein, Percutaneous Approach (ICD-10-PCS; 2023-06-10)
DX: R10.13 Epigastric pain (principal); R06.02 Shortness of breath; K29.00 Acute gastritis without bleeding
CPT/HCPCS: 36415; 71046-TC-FY; 76700-TC; 80053; 81003; 84703; 85025; 85610; 85730; 86850; 86900; 86901; 87086; 99285-25

== ENCOUNTER 2023-07-15 03:32 | Emergency (ER) | payer OTHER ==
[2023-07-15 03:54] VITALS: BP 128/59; PULSE 82; RESP 18; TEMP 97.9; BMI 19.3
[2023-07-15] MEDS ORDERED: ACETAMINOPHEN 500 MG TABLET (FP) PO ONE (04:21)
[2023-07-15] MEDS ORDERED: ACETAMINOPHEN 325 MG TABLET (FP) ONE (05:34)
[2023-07-15] MEDS ORDERED: KETOROLAC TROMETHAMINE 30 MG/1 ML VIAL IM ONE (05:38)
[2023-07-15 06:02] LABS: BASO % 0.8 % (0-2.0); EOS % 1.8 % (0-4.5); HEMATOCRIT 36.1 % (32.4-45.2); HEMOGLOBIN 11.9 GM/dL (10.7-15.3); MCH 29.5 pg (25.7-33.7); MCHC 32.9 g/dl (32.0-36.0); MEAN CELL VOLUME 89.7 fl (80-96); MEAN PLT VOLUME 9.2 fl (7.5-11.1); MONO % 12.8 % (3.8-10.2); NEUT % 42.6 % (42.8-82.8); PLATELET COUNT 233 10^3/uL (134-434); RBC 4.03 M/mm3 (3.60-5.2); RDW 16.4 % (11.6-15.6); WHITE BLOOD COUNT 5.5 K/mm3 (4.0-10.0)
[2023-07-15] MEDS ORDERED: diphenhydrAMINE HCL 12.5 MG/5 ML UNIT-DOSE CUPS ONE (06:04)
[2023-07-15] MEDS ORDERED: diphenhydrAMINE HCL 12.5 MG/5 ML UNIT-DOSE CUPS PO ONE (06:04)
== END 2023-07-15 07:04 | disposition left against medical advice (07) ==
LOC: JER 03:32
PROC: 3E0233Z Introduction of Anti-inflammatory into Muscle, Percutaneous Approach (ICD-10-PCS; principal; 2023-07-15)
DX: M79.602 Pain in left arm (principal); R07.89 Other chest pain
CPT/HCPCS: 36415; 85025; 93005; 93010; 96372; 99284-25

== ENCOUNTER 2024-04-21 19:09 | Inpatient (IN) | payer OTHER ==
[2024-04-21 19:23] VITALS: BMI 24.9
[2024-04-21] MEDS ORDERED: KETOROLAC TROMETHAMINE 30 MG/1 ML VIAL ONE (20:36)
[2024-04-21] MEDS ORDERED: METHOCARBAMOL 500 MG TABLET ONE (20:36)
[2024-04-21] MEDS ORDERED: LIDOCAINE 4% PATCH TP ONE (20:36)
[2024-04-21] MEDS ORDERED: ACETAMINOPHEN 500 MG TABLET (FP) ONE (20:38)
[2024-04-21] MEDS: LIDOCAINE 4% PATCH TP ONE (20:45)
[2024-04-21] MEDS: METHOCARBAMOL 500 MG TABLET PO ONE (20:46)
[2024-04-21] MEDS: ACETAMINOPHEN 500 MG TABLET (FP) PO ONE (20:46)
[2024-04-21] MEDS: KETOROLAC TROMETHAMINE 30 MG/1 ML VIAL IM ONE (20:46)
[2024-04-21 22:00] LABS: BASO % 0.5 % (0-2.0); HEMATOCRIT 36.5 % (32.4-45.2); HEMOGLOBIN 11.7 GM/dL (10.7-15.3); MCH 28.2 pg (25.7-33.7); MEAN CELL VOLUME 88.2 fl (80-96); MEAN PLT VOLUME 9.2 fl (7.5-11.1); MONO % 10.9 % (3.8-10.2); NEUT % 50.6 % (42.8-82.8); PLATELET COUNT 223 10^3/uL (134-434); RBC 4.14 M/mm3 (3.60-5.2); RDW 16.3 % (11.6-15.6); WHITE BLOOD COUNT 6.7 K/mm3 (4.0-10.0)
[2024-04-21 22:06] LABS: INR 0.96 (0.83-1.09)
[2024-04-21 22:09] LABS: ACTIVATED PTT 30.1 SECONDS (25.2-36.5)
[2024-04-21 22:19] LABS: POTASSIUM 4.3 mmol/L (3.5-5.1)
[2024-04-21 22:20] LABS: CALCIUM 8.2 mg/dL (8.5-10.1)
[2024-04-21 22:21] LABS: ALBUMIN 3.3 g/dl (3.4-5.0)
[2024-04-21 22:25] LABS: CREATININE 0.5 mg/dL (0.55-1.3)
[2024-04-21 22:26] LABS: BILIRUBIN,TOTAL 0.2 mg/dL (0.2-1)
[2024-04-22] MEDS ORDERED: METHOCARBAMOL 500 MG TABLET ONE (01:08)
[2024-04-22] MEDS ORDERED: morphine SULFATE 4 MG/ML VIAL ONE (02:48)
[2024-04-22] MEDS: morphine CARPU-JECT 2 MG/1 ML DISP.SYRIN IVPUSH ONE (02:55)
[2024-04-22] MEDS: MAGNESIUM SULF 50% (8.12 MEQ/2 ML-1 GM VIAL) IVPB ONE (02:56)
[2024-04-22] MEDS ORDERED: ACETAMINOPHEN INJECTION 100 ML IVPB ONE (05:41)
[2024-04-22] MEDS ORDERED: LIDOCAINE 5% TOPICAL PATCH ONE (05:42)
[2024-04-22 07:31] LABS: BASO % 0.2 % (0-2.0); EOS % 3.5 % (0-4.5); HEMATOCRIT 34.7 % (32.4-45.2); HEMOGLOBIN 11.4 GM/dL (10.7-15.3); LYMPH % 47.9 % (8-40); MCH 28.6 pg (25.7-33.7); MCHC 32.9 g/dl (32.0-36.0); MEAN CELL VOLUME 86.9 fl (80-96); MONO % 12.1 % (3.8-10.2); NEUT % 36.3 % (42.8-82.8); PLATELET COUNT 236 10^3/uL (134-434); RDW 16.1 % (11.6-15.6); WHITE BLOOD COUNT 5.4 K/mm3 (4.0-10.0)
[2024-04-22 07:51] LABS: CALCIUM 8.2 mg/dL (8.5-10.1); PHOSPHOROUS 3.8 mg/dL (2.5-4.9)
[2024-04-22 07:53] LABS: ALBUMIN 3.3 g/dl (3.4-5.0); BLOOD UREA NITROGEN 10.9 mg/dL (7-18)
[2024-04-22 07:54] LABS: BILIRUBIN,TOTAL 0.3 mg/dL (0.2-1)
[2024-04-22 07:56] LABS: CREATININE 0.5 mg/dL (0.55-1.3)
[2024-04-22] MEDS: CYCLOBENZAPRINE HCL 5 MG TABLET PO SCH (08:39)
[2024-04-22] MEDS: ENOXAPARIN NA (PORCINE) 40 MG/0.4 ML DISP.SYRIN SQ SCH (09:23)
[2024-04-22] MEDS: LIDOCAINE PATCH REMOVAL MC SCH ×2 (09:27→22:36)
[2024-04-22 10:19] LABS: ERYTHROCYTE SEDIMENTATION RATE 8 mm/hr (0-20)
[2024-04-22] MEDS: CYCLOBENZAPRINE HCL 5 MG TABLET PO ONE ×2 (10:21→12:33)
[2024-04-22] MEDS: ACETAMINOPHEN 1000 MG/100 ML BAG IVPB PRN (11:00)
[2024-04-22 12:23] VITALS: RESP 18
[2024-04-22] MEDS: traMADol HCL 50 MG TABLET PO PRN (15:38)
[2024-04-22] MEDS: diphenhydrAMINE HCL 25 MG CAPSULE (FP) PO ONE (20:29)
[2024-04-23] MEDS: ACETAMINOPHEN 1000 MG/100 ML BAG IVPB ONE (06:44)
[2024-04-23] MEDS: LIDOCAINE 5% TOPICAL PATCH TP SCH (08:09)
[2024-04-23] MEDS: ACETAMINOPHEN 500 MG TABLET (FP) PO SCH (09:22)
[2024-04-23] MEDS: CYCLOBENZAPRINE HCL 10 MG TABLET (FP) PO SCH (13:19)
[2024-04-23 17:10] VITALS: BP 119/75; PULSE 75; TEMP 97.2
== END 2024-04-23 17:40 | disposition home or self-care (01) | DRG 347 ==
LOC: JER 19:09 → JERBED 04-22 03:03 → OBSVTOIN 04-22 05:08 → J6S 04-22 07:02
PROVIDERS: ADMIT Internal Medicine; ATTEND Internal Medicine
DX: M54.2 Cervicalgia (principal); M31.30 Wegener's granulomatosis without renal involvement
CPT/HCPCS: 36415; 70470-TC; 70491-TC; 80053; 83735; 84100; 84703; 85025; 85610; 85651; 85730; 86140; 86850; 86900; 86901; 93005; 93010; 99285-25; G0378; J0131; Q9967

== ENCOUNTER 2024-06-07 17:09 | Emergency (ER) | payer OTHER ==
[2024-06-07 17:31] VITALS: BP 121/80; PULSE 77; RESP 18; TEMP 97; BMI 32.1
[2024-06-07] MEDS ORDERED: oxyCODONE HCL 5 MG TABLET ONE (18:34)
[2024-06-07] MEDS: oxyCODONE HCL 5 MG TABLET PO ONE (18:41)
[2024-06-07] MEDS: KETOROLAC TROMETHAMINE 30 MG/1 ML VIAL IM ONE (18:42)
== END 2024-06-07 18:49 | disposition home or self-care (01) ==
LOC: JERFT 17:09
PROC: 3E0133Z Introduction of Anti-inflammatory into Subcutaneous Tissue, Percutaneous Approach (ICD-10-PCS; principal; 2024-06-07)
DX: K08.89 Other specified disorders of teeth and supporting structures (principal)
CPT/HCPCS: 96372; 99284-25